=== PATIENT | male | born 1945 | race Caucasian/White ===

== ENCOUNTER 2018-02-12 21:07 | Emergency (ER) | payer MEDICARE, OTHER ==
[~2018-02-12] VITALS: Ht 182.9 cm; Wt 72.7 kg
[2018-02-12 23:52] VITALS: BP 170/91
== END 2018-02-12 23:53 | disposition home or self-care (01) ==
LOC: ER 21:07
DX: R19.7 Diarrhea, unspecified (principal); E78.00 Pure hypercholesterolemia, unspecified; I10 Essential (primary) hypertension; K21.9 Gastro-esophageal reflux disease without esophagitis; Z98.890 Other specified postprocedural states
CPT/HCPCS: 99284

== ENCOUNTER 2018-06-06 19:13 | Inpatient (IN) | payer MEDICARE, OTHER ==
[~2018-06-06] VITALS: Ht 190.5 cm; Wt 75.0 kg
[2018-06-06] MEDS ORDERED: ceFAZolin 1GM/D5W- ADD-VANTAGE 50 ML IV ONE (21:20)
[2018-06-06] MEDS ORDERED: morphine 4 MG/ML inj SYRINge IV ONE (21:20)
[2018-06-06] MEDS ORDERED: ondansetron/PF 4mg/2ml inj IV ONE (21:20)
[2018-06-06] MEDS ORDERED: UNABLE TO OBTAIN (22:08)
[2018-06-06 22:26] LABS: BASOPHILS % (AUTO) 0.1 % (0-1); EOSINOPHILS % (AUTO) 0.4 % (0-6); HEMATOCRIT 41.8 % (42.0-52.0); HEMOGLOBIN 13.8 g/dl (14.0-17.9); LYMPHOCYTES # (AUTO) 0.9 X10'3 (1.1-4.8); LYMPHOCYTES % (AUTO) 7.6 % (21-51); MEAN CORPUSCULAR VOLUME 85.1 FL (78-98); MEAN PLATELET VOLUME 7.6 FL (7.4-10.4); MONOCYTES # (AUTO) 0.3 X10'3 (0-0.9); MONOCYTES % (AUTO) 2.3 % (2-12); NEUTROPHILS # (AUTO) 11.1 X10'3 (1.8-7.7); NEUTROPHILS % (AUTO) 89.6 % (42-75); PLATELET COUNT 289 X10'3 (140-440); RED BLOOD COUNT 4.91 X10'6 (4.70-6.10); RED CELL DISTRIBUTION WIDTH 14.1 % (11.5-14.5); WHITE BLOOD COUNT 12.4 X10'3 (4.5-11.0)
[2018-06-06 22:41] LABS: PARTIAL THROMBOPLASTIN TIME 27 SECONDS (22-32); PROTHROMBIN TIME 10.1 SECONDS (9.0-12.0)
[2018-06-06 22:45] LABS: ANION GAP 5 (8-16); BLOOD UREA NITROGEN 15 MG/DL (7-18); BUN/CREATININE RATIO 12.3 (5.4-32.0); CHLORIDE 104 MMOL/L (99-107); CREATININE 1.22 MG/DL (0.60-1.10); GLUCOSE 116 MG/DL (70-104); POTASSIUM 4.9 MMOL/L (3.5-5.1); SODIUM 140 MMOL/L (135-145); TOTAL CARBON DIOXIDE 31.2 MMOL/L (24-32)
[2018-06-06 22:46] LABS: ALANINE AMINOTRANSFERASE 20 U/L (12-78); ALBUMIN 3.7 G/DL (3.4-5.0); ALKALINE PHOSPHATASE 92 IU/L (46-116); ASPARTATE AMINO TRANSFERASE 15 U/L (10-37); BILIRUBIN,TOTAL 0.3 MG/DL (0.1-1.0); CALCIUM 8.9 MG/DL (8.5-10.1); TOTAL PROTEIN 7.3 G/DL (6.4-8.2); eGFR 58 ML/MIN
[2018-06-06 22:49] LABS: LIPASE 128 U/L (73-393); TROPONIN I < 0.04 NG/ML (0.0-0.05)
[2018-06-06 23:49] LABS: PLATELET ESTIMATE NORMAL; TOTAL CELLS COUNTED 100
[2018-06-07] VITALS (20 sets, daily range): BP systolic 124–163; BP diastolic 62–89
[2018-06-07] MEDS ORDERED: morphine 2 MG/ML inj. syringe IV PRN ×2 (00:10→04:10)
[2018-06-07] MEDS ORDERED: ondansetron/PF 4mg/2ml inj IV PRN ×2 (00:10→14:25)
[2018-06-07] MEDS: normal saline 1000ml 1,000 ML IV SCH ×3 (01:04→15:51)
[2018-06-07] MEDS: morphine 2 MG/ML inj. syringe IV PRN ×2 (01:04→08:34)
[2018-06-07 02:13] LABS: CLARITY,URINE CLEAR (Clear); COLOR,URINE YELLOW (Yellow); GLUCOSE, URINE NEGATIVE (Neg); KETONES,URINE TRACE mg/dl (Neg); LEUKOCYTE ESTERASE ,URINE NEGATIVE (Neg); NITRITES, URINE NEGATIVE (Neg); OCCULT BLOOD,URINE NEGATIVE (Neg); PH,URINE 6.5 (4.8-8.0); PROTEIN,URINE NEGATIVE (Neg)
[2018-06-07 02:16] LABS: UA COLLECTION TYPE CLN CATCH MIDSTREAM
[2018-06-07] MEDS ORDERED: nicotine 21mg patch - 24 hr TD SCH (08:00)
[2018-06-07] MEDS: ceFAZolin 1GM/D5W- ADD-VANTAGE 50 ML IV SCH ×2 (08:23→15:52)
[2018-06-07] MEDS ORDERED: sevoflurane 250ml liquid IH ONE (12:08)
[2018-06-07] MEDS ORDERED: BUSP10TA11 PO (12:11)
[2018-06-07] MEDS ORDERED: ALBU8HFA PO (12:11)
[2018-06-07] MEDS ORDERED: CITA-278 PO (12:12)
[2018-06-07] MEDS ORDERED: CYA500T PO (12:14)
[2018-06-07] MEDS ORDERED: CHOL400T32 PO (12:14)
[2018-06-07] MEDS ORDERED: PANT40TA4 PO (12:18)
[2018-06-07] MEDS ORDERED: QUET100T33 PO (12:22)
[2018-06-07] MEDS ORDERED: ipratropium/albuterol 3ml nebule NEB PRN (12:35)
[2018-06-07] MEDS ORDERED: ceFAZolin 1000mg inj ONE ×2 (12:45→13:16)
[2018-06-07] MEDS ORDERED: BUPIVAcaine/PF 2.5mg/ml (0.25%) 10ml vial ONE (12:45)
[2018-06-07] MEDS ORDERED: fentaNYL /PF 50mcg/ml 5ml ampule ONE (12:57)
[2018-06-07] MEDS ORDERED: propofol inj 20 ML IV ONE (12:58)
[2018-06-07] MEDS ORDERED: rocuronium 10mg/ml inj IV ONE (12:58)
[2018-06-07] MEDS ORDERED: LIDOcaine 2% (20mg/ml) 5ml vial ONE (12:58)
[2018-06-07] MEDS ORDERED: dexamethasone sod phosphate 4mg/ml inj. ONE (13:16)
[2018-06-07] MEDS ORDERED: glycopyrrolate 0.2mg/ml inj ONE (13:51)
[2018-06-07] MEDS ORDERED: neostigmine methylsulfate 1 MG/ML 10ml vial ONE (13:51)
[2018-06-07] MEDS ORDERED: ondansetron/PF 4mg/2ml inj ONE (13:51)
[2018-06-07] MEDS ORDERED: ringers solution, lacted 1,000 ML IV SCH (14:21)
[2018-06-07] MEDS ORDERED: morphine 4 MG/ML inj SYRINge IV PRN (14:25)
[2018-06-07] MEDS ORDERED: HYDROmorphone 1 mg/ml syringe IV PRN (14:25)
[2018-06-07] MEDS ORDERED: albuterol 2.5 MG/3 ML nebule NEB PRN (16:15)
[2018-06-07] MEDS: ipratropium/albuterol 3ml nebule NEB PRN (16:24)
[2018-06-07] MEDS: nicotine 14mg patch - 24hr TD SCH (20:17)
[2018-06-07] MEDS: quetiapine 100mg tablet PO SCH (20:26)
[2018-06-07] MEDS: lactobacillus rhamnosus 10,000 MMU CELLS/CAPSULE PO SCH (20:26)
[2018-06-07] MEDS: busPIRone 5mg tablet PO SCH (20:26)
[2018-06-08] MEDS: ceFAZolin 1GM/D5W- ADD-VANTAGE 50 ML IV SCH ×3 (01:38→16:01)
[2018-06-08 02:00] VITALS: BP 149/66
[2018-06-08] MEDS: normal saline 1000ml 1,000 ML IV SCH ×3 (03:32→23:48)
[2018-06-08] MEDS: acetaminophen 325mg tablet PO PRN ×3 (05:38→19:33)
[2018-06-08 06:00] VITALS: BP 155/85
[2018-06-08 06:12] LABS: BASOPHILS % (AUTO) 0.3 % (0-1); EOSINOPHILS # (AUTO) 0.1 X10'3 (0-0.9); HEMOGLOBIN 11.7 g/dl (14.0-17.9); LYMPHOCYTES # (AUTO) 1.4 X10'3 (1.1-4.8); LYMPHOCYTES % (AUTO) 14.3 % (21-51); MEAN CORPUSCULAR HEMOGLOBIN 27.9 PG (27.0-31.0); MEAN CORPUSCULAR HGB CONC 32.6 % (33.0-36.5); MEAN CORPUSCULAR VOLUME 85.7 FL (78-98); MEAN PLATELET VOLUME 7.9 FL (7.4-10.4); MONOCYTES # (AUTO) 0.7 X10'3 (0-0.9); MONOCYTES % (AUTO) 7.3 % (2-12); NEUTROPHILS # (AUTO) 7.5 X10'3 (1.8-7.7); NEUTROPHILS % (AUTO) 77.1 % (42-75); PLATELET COUNT 255 X10'3 (140-440); RED CELL DISTRIBUTION WIDTH 13.8 % (11.5-14.5); WHITE BLOOD COUNT 9.7 X10'3 (4.5-11.0)
[2018-06-08 06:29] LABS: ALANINE AMINOTRANSFERASE 13 U/L (12-78); ALBUMIN 2.8 G/DL (3.4-5.0); ALBUMIN/GLOBULIN RATIO 0.9 (1.1-1.5); ALKALINE PHOSPHATASE 79 IU/L (46-116); ANION GAP 6 (8-16); ASPARTATE AMINO TRANSFERASE 18 U/L (10-37); BILIRUBIN,TOTAL 0.4 MG/DL (0.1-1.0); BLOOD UREA NITROGEN 14 MG/DL (7-18); BUN/CREATININE RATIO 18.9 (5.4-32.0); CHLORIDE 106 MMOL/L (99-107); CREATININE 0.74 MG/DL (0.60-1.10); GLUCOSE 98 MG/DL (70-104); POTASSIUM 4.2 MMOL/L (3.5-5.1); SODIUM 138 MMOL/L (135-145); eGFR > 90 ML/MIN
[2018-06-08] MEDS: citalopram 20mg tablet PO SCH (08:12)
[2018-06-08] MEDS: lactobacillus rhamnosus 10,000 MMU CELLS/CAPSULE PO SCH ×2 (08:12→20:46)
[2018-06-08] MEDS: busPIRone 5mg tablet PO SCH ×2 (08:13→20:46)
[2018-06-08] MEDS: pantoprazole 40mg Tablet.DR PO SCH (08:13)
[2018-06-08] MEDS: cholecalciferol (vitamin D) 400 unit tablet PO SCH (08:13)
[2018-06-08] MEDS: cyanocobalamin 500mcg tablet PO SCH (08:13)
[2018-06-08] MEDS: morphine 2 MG/ML inj. syringe IV PRN (12:24)
[2018-06-08] MEDS: nicotine 14mg patch - 24hr TD SCH (14:13)
[2018-06-08 18:00] VITALS: BP 145/72
[2018-06-08] MEDS: ipratropium/albuterol 3ml nebule NEB PRN (20:14)
[2018-06-08] MEDS: quetiapine 100mg tablet PO SCH (20:46)
[2018-06-08 22:00] VITALS: BP 124/55
[2018-06-09] MEDS: ceFAZolin 1GM/D5W- ADD-VANTAGE 50 ML IV SCH ×4 (00:56→16:00)
[2018-06-09] MEDS: acetaminophen 325mg tablet PO PRN ×2 (03:56→20:15)
[2018-06-09 06:14] LABS: BASOPHILS % (AUTO) 0.4 % (0-1); EOSINOPHILS # (AUTO) 0.1 X10'3 (0-0.9); EOSINOPHILS % (AUTO) 1.4 % (0-6); HEMATOCRIT 32.2 % (42.0-52.0); HEMOGLOBIN 10.5 g/dl (14.0-17.9); LYMPHOCYTES # (AUTO) 1.5 X10'3 (1.1-4.8); LYMPHOCYTES % (AUTO) 21.1 % (21-51); MEAN CORPUSCULAR HEMOGLOBIN 27.6 PG (27.0-31.0); MEAN CORPUSCULAR HGB CONC 32.6 % (33.0-36.5); MEAN CORPUSCULAR VOLUME 84.7 FL (78-98); MEAN PLATELET VOLUME 7.6 FL (7.4-10.4); MONOCYTES # (AUTO) 0.6 X10'3 (0-0.9); MONOCYTES % (AUTO) 8.3 % (2-12); NEUTROPHILS # (AUTO) 4.8 X10'3 (1.8-7.7); NEUTROPHILS % (AUTO) 68.8 % (42-75); PLATELET COUNT 234 X10'3 (140-440); RED CELL DISTRIBUTION WIDTH 14.3 % (11.5-14.5)
[2018-06-09 06:52] VITALS: BP 145/76
[2018-06-09 07:17] LABS: ALANINE AMINOTRANSFERASE 14 U/L (12-78); ALBUMIN 2.6 G/DL (3.4-5.0); ALBUMIN/GLOBULIN RATIO 0.9 (1.1-1.5); ALKALINE PHOSPHATASE 63 IU/L (46-116); ANION GAP 7 (8-16); ASPARTATE AMINO TRANSFERASE 15 U/L (10-37); BILIRUBIN,TOTAL 0.3 MG/DL (0.1-1.0); BLOOD UREA NITROGEN 10 MG/DL (7-18); BUN/CREATININE RATIO 12.7 (5.4-32.0); CALCIUM 8.1 MG/DL (8.5-10.1); CHLORIDE 106 MMOL/L (99-107); CREATININE 0.79 MG/DL (0.60-1.10); GLUCOSE 88 MG/DL (70-104); POTASSIUM 3.7 MMOL/L (3.5-5.1); SODIUM 139 MMOL/L (135-145); TOTAL PROTEIN 5.6 G/DL (6.4-8.2); eGFR > 90 ML/MIN
[2018-06-09] MEDS: cyanocobalamin 500mcg tablet PO SCH (07:20)
[2018-06-09] MEDS: cholecalciferol (vitamin D) 400 unit tablet PO SCH (07:20)
[2018-06-09] MEDS: lactobacillus rhamnosus 10,000 MMU CELLS/CAPSULE PO SCH ×2 (07:21→20:10)
[2018-06-09] MEDS: pantoprazole 40mg Tablet.DR PO SCH (07:21)
[2018-06-09] MEDS: busPIRone 5mg tablet PO SCH ×2 (07:21→20:10)
[2018-06-09] MEDS: citalopram 20mg tablet PO SCH (07:22)
[2018-06-09] MEDS: nicotine 14mg patch - 24hr TD SCH (07:24)
[2018-06-09 10:00] VITALS: BP 134/74
[2018-06-09] MEDS: normal saline 1000ml 1,000 ML IV SCH ×2 (12:10→20:11)
[2018-06-09 18:00] VITALS: BP 152/80
[2018-06-09] MEDS: quetiapine 100mg tablet PO SCH (20:10)
[2018-06-09 21:39] VITALS: BP 129/72
[2018-06-10 05:00] VITALS: BP 139/75
[2018-06-10 06:42] LABS: BASOPHILS % (AUTO) 0.5 % (0-1); EOSINOPHILS # (AUTO) 0.1 X10'3 (0-0.9); EOSINOPHILS % (AUTO) 2.3 % (0-6); HEMATOCRIT 34.8 % (42.0-52.0); HEMOGLOBIN 11.4 g/dl (14.0-17.9); LYMPHOCYTES # (AUTO) 1.2 X10'3 (1.1-4.8); LYMPHOCYTES % (AUTO) 23.9 % (21-51); MEAN CORPUSCULAR HEMOGLOBIN 27.9 PG (27.0-31.0); MEAN CORPUSCULAR HGB CONC 32.6 % (33.0-36.5); MEAN CORPUSCULAR VOLUME 85.4 FL (78-98); MEAN PLATELET VOLUME 7.8 FL (7.4-10.4); MONOCYTES # (AUTO) 0.4 X10'3 (0-0.9); MONOCYTES % (AUTO) 8.2 % (2-12); NEUTROPHILS # (AUTO) 3.4 X10'3 (1.8-7.7); NEUTROPHILS % (AUTO) 65.1 % (42-75); PLATELET COUNT 246 X10'3 (140-440); RED BLOOD COUNT 4.08 X10'6 (4.70-6.10); WHITE BLOOD COUNT 5.2 X10'3 (4.5-11.0)
[2018-06-10 06:51] LABS: ALANINE AMINOTRANSFERASE 13 U/L (12-78); ALBUMIN 2.7 G/DL (3.4-5.0); ALBUMIN/GLOBULIN RATIO 0.8 (1.1-1.5); ALKALINE PHOSPHATASE 67 IU/L (46-116); ANION GAP 6 (8-16); ASPARTATE AMINO TRANSFERASE 16 U/L (10-37); BILIRUBIN,TOTAL 0.4 MG/DL (0.1-1.0); BLOOD UREA NITROGEN 10 MG/DL (7-18); BUN/CREATININE RATIO 14.3 (5.4-32.0); CALCIUM 8.1 MG/DL (8.5-10.1); CHLORIDE 107 MMOL/L (99-107); GLUCOSE 83 MG/DL (70-104); POTASSIUM 3.8 MMOL/L (3.5-5.1); SODIUM 141 MMOL/L (135-145); TOTAL PROTEIN 5.9 G/DL (6.4-8.2); eGFR > 90 ML/MIN
[2018-06-10 07:07] LABS: % IRON SATURATION 12 % (11-46); IRON 29 UG/DL (53-167); TOTAL IRON BINDING CAPACITY 237 UG/DL (259-388)
[2018-06-10] MEDS: citalopram 20mg tablet PO SCH (08:15)
[2018-06-10] MEDS: cyanocobalamin 500mcg tablet PO SCH (08:15)
[2018-06-10] MEDS: lactobacillus rhamnosus 10,000 MMU CELLS/CAPSULE PO SCH (08:15)
[2018-06-10] MEDS: pantoprazole 40mg Tablet.DR PO SCH (08:16)
[2018-06-10] MEDS: busPIRone 5mg tablet PO SCH (08:16)
[2018-06-10] MEDS: cholecalciferol (vitamin D) 400 unit tablet PO SCH (08:16)
[2018-06-10] MEDS: nicotine 14mg patch - 24hr TD SCH (08:18)
[2018-06-10 10:00] VITALS: BP 114/66
== END 2018-06-10 14:45 | DRG 511 ==
LOC: ER 19:14 → ED HOLD 06-07 00:10 → EDBEDREQ 06-07 00:56 → ORTHO 4S 06-07 01:29
PROVIDERS: ADMIT Internal Medicine; ATTEND Internal Medicine
PROC: 2W39X1Z Immobilization of Left Upper Extremity using Splint (ICD-10-PCS; 2018-06-07)
PROC: 0PSL04Z Reposition Left Ulna with Internal Fixation Device, Open Approach (ICD-10-PCS; principal; 2018-06-07 12:08)
DX: S52.022B Displaced fracture of olecranon process without intraarticular extension of left ulna, initial encounter for open fracture type I or II (principal); N17.9 Acute kidney failure, unspecified; W01.0XXA Fall on same level from slipping, tripping and stumbling without subsequent striking against object, initial encounter; S52.122B Displaced fracture of head of left radius, initial encounter for open fracture type I or II; E78.00 Pure hypercholesterolemia, unspecified; F17.210 Nicotine dependence, cigarettes, uncomplicated; F31.9 Bipolar disorder, unspecified; I10 Essential (primary) hypertension; J44.9 Chronic obstructive pulmonary disease, unspecified; K21.9 Gastro-esophageal reflux disease without esophagitis; D72.829 Elevated white blood cell count, unspecified; F41.9 Anxiety disorder, unspecified; R91.1 Solitary pulmonary nodule; Z79.899 Other long term (current) drug therapy; Y93.89 Activity, other specified; Y92.89 Other specified places as the place of occurrence of the external cause; Y99.8 Other external cause status; Z71.6 Tobacco abuse counseling
CPT/HCPCS: 36415; 71045; 73080; 73564; 80053; 81003; 83540; 83550; 83690; 84484; 85025; 85610; 85730; 86885; 86900; 86901; 87070; 93005; 94640; 94667; 94668; 94760; 97110; 97116; 97161; A4565; A6222; A6449; A7000; C1713; G0378; J0690; J1100; J2001; J2270; J2405; J2704; J2710; J3010; J3490; J7030; J7120

== ENCOUNTER 2019-01-10 09:19 | Emergency (ER) | payer MEDICARE, OTHER ==
[~2019-01-10] VITALS: Ht 180.3 cm; Wt 87.2 kg
[~2019-01-10 09:19] MED LIST: ALBU8HFA PO; BUSP10TA11 PO; CHOL400T32 PO; CITA20TA28 PO; CYAN500T63 PO; PANT40TA4 PO; QUET100T33 PO; UNABLE TO OBTAIN
--- NOTE | 2019-01-10 09:30 | NUR ---
Note hubertradha in EDM - 01/10/19 at 1048 by JANEY I WALKED INTO [facility] WITH DAVID HOOVER AT BEDSIDE: PATIENT GRABBING HANDS ON BED AND THRASHING SIDE TO SIDE, PER VERBAL ORDER FROM DR STOREY: VERSED GTT INCRESED TO 5 MG/HR AND FENTANYL IVP TO BE GIVEN GTT UNAVAILABLE AT THIS TIME PATIENT ON VENT: 8 OETT 25 CM AT LIP ON 40%, PEEP 5 AC/VC VISUALIZED TV 409 SET TV 400ML. ORAL SUCTION: FROTHY CLEAR OG RESECURED TO OETT: TO LIS LIGHT GREEN FLUID FC TO GRAVIT: PEYTON BLOOD
[2019-01-10] MEDS ORDERED: LIDOcaine 1% 30ml preserv. free vial IJ ONE (10:05)
--- NOTE | 2019-01-10 10:20 | NUR ---
Agustin alin in EDM - 01/10/19 at 1100 by JANEY PAT VERY COMBATIVE AFTER OEET SXN: THRASHING SIDE TO SIDE GRABBING BED WITH HANDS, LIFTING HEAD OF BED, DR ROMO IN ROOM, 1 RN AND 1 TECH TO KEEP PATIENT FROM HURTING HIMSELF, OVERBREATHING VENTILATOR: RR 30, HR UP TO 136, ST, BP 159/98
--- NOTE | 2019-01-10 11:00 | NUR ---
previous notes undone, wrong patient
--- NOTE | 2019-01-10 11:30 | NUR ---
PAM MIDDLE FINGER RESET BY DR STOREY, XRAY IN ROOM
[2019-01-10 12:00] VITALS: BP 153/95
== END 2019-01-10 12:01 | disposition home or self-care (01) ==
LOC: ER 09:19
DX: S63.263A Dislocation of metacarpophalangeal joint of left middle finger, initial encounter (principal); E78.00 Pure hypercholesterolemia, unspecified; I10 Essential (primary) hypertension; K21.9 Gastro-esophageal reflux disease without esophagitis; Z98.890 Other specified postprocedural states; Z79.899 Other long term (current) drug therapy; W18.49XA Other slipping, tripping and stumbling without falling, initial encounter; Y93.89 Activity, other specified; Y92.89 Other specified places as the place of occurrence of the external cause; Y99.9 Unspecified external cause status
CPT/HCPCS: 26700; 73130; 73140; 99284; J3490

== ENCOUNTER 2019-12-28 18:44 | Inpatient (IN) | payer OTHER, MEDICARE ==
[~2019-12-28] VITALS: Ht 180.3 cm; Wt 81.8 kg
--- NOTE | 2019-12-28 19:09 | NUR ---
called brady anderson. she is driving to her office to acquire patient's medication list. ETA 30 min
[2019-12-28 19:11] LABS: BASOPHILS % (AUTO) 0.8 % (0-1); EOSINOPHILS # (AUTO) 0.1 X10'3 (0-0.9); EOSINOPHILS % (AUTO) 2.2 % (0-6); HEMOGLOBIN 12.2 g/dl (14.0-17.9); LYMPHOCYTES # (AUTO) 1.5 X10'3 (1.1-4.8); LYMPHOCYTES % (AUTO) 23.8 % (21-51); MEAN CORPUSCULAR HEMOGLOBIN 25.7 PG (27.0-31.0); MEAN CORPUSCULAR VOLUME 80.2 FL (78-98); MEAN PLATELET VOLUME 7.8 FL (7.4-10.4); MONOCYTES # (AUTO) 0.5 X10'3 (0-0.9); NEUTROPHILS % (AUTO) 65.2 % (42-75); PLATELET COUNT 261 X10'3 (140-440); RED BLOOD COUNT 4.73 X10'6 (4.70-6.10); RED CELL DISTRIBUTION WIDTH 15.8 % (11.5-14.5); WHITE BLOOD COUNT 6.1 X10'3 (4.5-11.0)
[2019-12-28 19:21] LABS: PARTIAL THROMBOPLASTIN TIME 28 SECONDS (22-32)
[2019-12-28 19:24] LABS: ALANINE AMINOTRANSFERASE 16 U/L (12-78); ALBUMIN 3.5 G/DL (3.4-5.0); ALBUMIN/GLOBULIN RATIO 1.1 (1.1-1.5); ALKALINE PHOSPHATASE 95 IU/L (46-116); ANION GAP 6 (8-16); ASPARTATE AMINO TRANSFERASE 11 U/L (10-37); BILIRUBIN,TOTAL 0.2 MG/DL (0.1-1.0); BLOOD UREA NITROGEN 17 MG/DL (7-18); BUN/CREATININE RATIO 15.9 (5.4-32.0); CALCIUM 8.7 MG/DL (8.5-10.1); CHLORIDE 104 MMOL/L (99-107); CREATININE 1.07 MG/DL (0.60-1.10); GLUCOSE 100 MG/DL (70-104); SODIUM 139 MMOL/L (135-145); TOTAL PROTEIN 6.7 G/DL (6.4-8.2); eGFR 67 ML/MIN
[2019-12-28] MEDS ORDERED: aspirin 325mg tablet PO ONE (19:25)
[2019-12-28 19:26] LABS: TROPONIN I < 0.04 NG/ML (0.0-0.05)
[2019-12-28] MEDS ORDERED: magnesium hydroxide 30ml (MOM) UD suspension PO PRN (21:55)
[2019-12-28] MEDS ORDERED: acetaminophen 325mg tablet PO PRN (21:55)
[2019-12-28] MEDS ORDERED: mag hydrox/Alum hydrox/simeth 30ml oral suspension PO PRN (21:55)
[2019-12-28] MEDS ORDERED: ondansetron/PF 4mg/2ml inj IV PRN (21:55)
[2019-12-28] MEDS ORDERED: albuterol 2.5 MG/3 ML nebule NEB PRN (22:05)
[2019-12-28 22:30] VITALS: BP 178/77
--- NOTE | 2019-12-28 22:54 | NUR ---
ASSUMED CARE OF PATIENT WITH REPORT FROM MUSEUM SECURITY CHIEF, PATIENT ARRIVED VIA GURNEY AND TRANSFERED TO BED. 2 RN SKIN CHECK DONE, NO SKIN ISSUES NOTED. MRSA SWAB OBTAINED AND SENT TO LAB. PATIENT A&O X4, BUT IS HARD OF HEARING WHICH MAKES FOR SOME MISUNDERSTANDING OF QUESTIONS ASKED. VITAL SIGNS TAKEN AND RECORDED. URINAL AND CALL LIGHT IN REACH
[2019-12-28] MEDS ORDERED: quetiapine 100mg tablet PO ONE (23:05)
[2019-12-28 23:49] LABS: CLARITY,URINE CLEAR (Clear); COLOR,URINE YELLOW (Yellow); GLUCOSE, URINE NEGATIVE (Neg); KETONES,URINE NEGATIVE (Neg); LEUKOCYTE ESTERASE ,URINE NEGATIVE (Neg); NITRITES, URINE NEGATIVE (Neg); OCCULT BLOOD,URINE NEGATIVE (Neg); PROTEIN,URINE NEGATIVE (Neg)
[2019-12-28 23:50] LABS: UA COLLECTION TYPE VOIDED
[2019-12-29] VITALS: BP 175/75
[2019-12-29 04:00] VITALS: BP 168/71
[2019-12-29 05:04] LABS: ALANINE AMINOTRANSFERASE 11 U/L (12-78); ALBUMIN 3.1 G/DL (3.4-5.0); ALKALINE PHOSPHATASE 89 IU/L (46-116); ANION GAP 10 (8-16); ASPARTATE AMINO TRANSFERASE 19 U/L (10-37); BILIRUBIN,TOTAL 0.4 MG/DL (0.1-1.0); CALCIUM 8.5 MG/DL (8.5-10.1); CHLORIDE 106 MMOL/L (99-107); CHOL/HDL RATIO 3.7 (0.00-4.99); CHOLESTEROL 187 MG/DL (0-200); CREATININE 0.79 MG/DL (0.60-1.10); GLUCOSE 88 MG/DL (70-104); HDL CHOLESTEROL 50 MG/DL (35-60); LDL CHOLESTEROL 131 MG/DL (50-100); SODIUM 140 MMOL/L (135-145); TOTAL CARBON DIOXIDE 24.2 MMOL/L (24-32); TOTAL PROTEIN 6.2 G/DL (6.4-8.2); TRIGLYCERIDES 50 MG/DL (20-135); eGFR > 90 ML/MIN
[2019-12-29 05:10] LABS: BLOOD UREA NITROGEN 13 MG/DL (7-18); BUN/CREATININE RATIO 16.5 (5.4-32.0); POTASSIUM 4.3 MMOL/L (3.5-5.1)
--- NOTE | 2019-12-29 06:00 | NUR ---
Patient in room ADELA[facility] 344. I have received report from Tony HERNANDEZ and had the opportunity to ask questions and assume patient care.
--- NOTE | 2019-12-29 06:32 | NUR ---
Patient in room ADELAIDA 344. I have received report from Sherri HERNANDEZ and had the opportunity to ask questions and assume patient care.
--- NOTE | 2019-12-29 06:33 | NUR ---
Problems reprioritized. Patient report given, questions answered & plan of care reviewed with DANIEL HERNANDEZ.
[2019-12-29 07:31] LABS: BASOPHILS % (AUTO) 0.5 % (0-1); EOSINOPHILS # (AUTO) 0.1 X10'3 (0-0.9); EOSINOPHILS % (AUTO) 1.8 % (0-6); HEMATOCRIT 38.6 % (42.0-52.0); HEMOGLOBIN 12.4 g/dl (14.0-17.9); LYMPHOCYTES # (AUTO) 1.6 X10'3 (1.1-4.8); LYMPHOCYTES % (AUTO) 25.9 % (21-51); MEAN CORPUSCULAR HEMOGLOBIN 26.3 PG (27.0-31.0); MEAN CORPUSCULAR HGB CONC 32.1 g/dL (33.0-36.5); MEAN CORPUSCULAR VOLUME 81.8 FL (78-98); MEAN PLATELET VOLUME 7.7 FL (7.4-10.4); MONOCYTES # (AUTO) 0.4 X10'3 (0-0.9); NEUTROPHILS # (AUTO) 4.1 X10'3 (1.8-7.7); NEUTROPHILS % (AUTO) 64.8 % (42-75); PLATELET COUNT 231 X10'3 (140-440); RED BLOOD COUNT 4.71 X10'6 (4.70-6.10); RED CELL DISTRIBUTION WIDTH 15.9 % (11.5-14.5); WHITE BLOOD COUNT 6.4 X10'3 (4.5-11.0)
[2019-12-29 08:00] VITALS: BP 152/73
[2019-12-29] MEDS ORDERED: cyanocobalamin 500mcg tablet PO SCH (08:00)
[2019-12-29] MEDS ORDERED: pantoprazole 40mg Tablet.DR PO SCH (08:00)
[2019-12-29] MEDS ORDERED: citalopram 20mg tablet PO SCH (08:00)
[2019-12-29] MEDS ORDERED: busPIRone 5mg tablet PO SCH (08:00)
[2019-12-29] MEDS ORDERED: cholecalciferol (vitamin D) 400 unit tablet PO SCH (08:00)
[2019-12-29] MEDS ORDERED: heparin, porcine 5000 units/ml vial SQ SCH (08:00)
[2019-12-29 11:00] VITALS: BP 136/82
[2019-12-29] MEDS ORDERED: atorvastatin 20mg tablet PO SCH (11:55)
[2019-12-29 12:00] VITALS: BP 136/82
[2019-12-29] MEDS ORDERED: ASPI-1071 PO (13:43)
[2019-12-29] MEDS ORDERED: ATOR20TA66 PO (13:43)
--- NOTE | 2019-12-29 16:37 | NUR ---
patient appears stable Neuro checks normal. patient alert and orientated. All cares given. seen by Dr Hinojosa. Is for DC. All DC instructions given to patient. Conservator Mago called to report care given and DC home. patient DC via [facility] with Ambulance personel to [facility]. [facility] patient stated he understood this. Dc 1600hrs in stable condition.
[2019-12-29] MEDS ORDERED: quetiapine 100mg tablet PO SCH (21:00)
[2019-12-30] MEDS ORDERED: aspirin 81mg tablet.DR PO SCH (08:00)
== END 2019-12-29 16:16 | disposition home or self-care (01) | DRG 69 ==
LOC: ER 18:44 → ED HOLD 21:53 → EDBEDREQ 22:06 → SUR 3N 22:39
PROVIDERS: ADMIT Internal Medicine; ATTEND Family Medicine
DX: G45.9 Transient cerebral ischemic attack, unspecified (principal); E78.00 Pure hypercholesterolemia, unspecified; F17.210 Nicotine dependence, cigarettes, uncomplicated; F32.9 Major depressive disorder, single episode, unspecified; K21.9 Gastro-esophageal reflux disease without esophagitis; I10 Essential (primary) hypertension; Z87.820 Personal history of traumatic brain injury; Z79.899 Other long term (current) drug therapy
CPT/HCPCS: 36415; 70450; 70544; 70551; 71045; 80053; 80061; 81003; 82948; 83036; 83605; 84145; 84439; 84443; 84484; 85025; 85610; 85730; 87040; 87081; 93005; 93880; 99285; G0378; J1644

== ENCOUNTER 2020-09-10 11:21 | Emergency (ER) | payer OTHER, MEDICARE ==
[~2020-09-10] VITALS: Ht 182.9 cm; Wt 86.4 kg
[~2020-09-10 11:21] MED LIST changes: -ALBU8HFA PO; +ASPI-1071 PO; +ATOR20TA66 PO; +CHOL20004 PO; -CHOL400T32 PO; +CLOP75TA15 PO; -CYAN500T63 PO; +CYAN500T71 PO; +METO25TA6 PO; -PANT40TA4 PO; +PANT40TA54 PO; +TRAZ-251 PO; -UNABLE TO OBTAIN
[2020-09-10 11:24] VITALS: BP 113/47
--- NOTE | 2020-09-10 11:24 | NUR ---
JETT SY [phone] CONSERVATOR
[2020-09-10] MEDS ORDERED: normal saline 1000ml 1,000 ML IV ONE (11:45)
[2020-09-10 12:03] LABS: BASOPHILS % (AUTO) 0.8 % (0-1); EOSINOPHILS # (AUTO) 0.1 X10'3 (0-0.9); EOSINOPHILS % (AUTO) 2.3 % (0-6); HEMATOCRIT 29.9 % (42.0-52.0); HEMOGLOBIN 9.4 g/dl (14.0-17.9); LYMPHOCYTES # (AUTO) 1.1 X10'3 (1.1-4.8); LYMPHOCYTES % (AUTO) 18.4 % (21-51); MEAN CORPUSCULAR HEMOGLOBIN 24.4 PG (27.0-31.0); MEAN CORPUSCULAR HGB CONC 31.5 g/dL (33.0-36.5); MEAN CORPUSCULAR VOLUME 77.4 FL (78-98); MEAN PLATELET VOLUME 7.6 FL (7.4-10.4); MONOCYTES # (AUTO) 0.5 X10'3 (0-0.9); MONOCYTES % (AUTO) 7.6 % (2-12); NEUTROPHILS # (AUTO) 4.3 X10'3 (1.8-7.7); NEUTROPHILS % (AUTO) 70.9 % (42-75); PLATELET COUNT 323 X10'3 (140-440); RED BLOOD COUNT 3.86 X10'6 (4.70-6.10); RED CELL DISTRIBUTION WIDTH 16.2 % (11.5-14.5); WHITE BLOOD COUNT 6.1 X10'3 (4.5-11.0)
[2020-09-10 12:15] LABS: ALANINE AMINOTRANSFERASE 28 U/L (12-78); ALBUMIN 3.3 G/DL (3.4-5.0); ALBUMIN/GLOBULIN RATIO 1.1 (1.1-1.5); ALKALINE PHOSPHATASE 73 IU/L (46-116); ANION GAP 10 (8-16); ASPARTATE AMINO TRANSFERASE 28 U/L (10-37); BILIRUBIN,TOTAL 0.3 MG/DL (0.1-1.0); BLOOD UREA NITROGEN 18 MG/DL (7-18); BUN/CREATININE RATIO 22.8 (5.4-32.0); CALCIUM 8.4 MG/DL (8.5-10.1); CHLORIDE 104 MMOL/L (99-107); CREATININE 0.79 MG/DL (0.60-1.10); GLUCOSE 92 MG/DL (70-104); POTASSIUM 4.8 MMOL/L (3.5-5.1); SODIUM 142 MMOL/L (135-145); TOTAL CARBON DIOXIDE 28.4 MMOL/L (24-32); TOTAL PROTEIN 6.3 G/DL (6.4-8.2); eGFR > 90 ML/MIN
[2020-09-10 12:22] LABS: TROPONIN I < 0.04 NG/ML (0.0-0.05)
[2020-09-15 16:10] LABS: OCCULT BLOOD STOOL NEGATIVE (Neg)
== END 2020-09-10 12:55 | disposition home or self-care (01) ==
LOC: ER 11:22
DX: R42 Dizziness and giddiness (principal); D64.9 Anemia, unspecified; R53.1 Weakness; R06.02 Shortness of breath; E78.00 Pure hypercholesterolemia, unspecified; I10 Essential (primary) hypertension; K21.9 Gastro-esophageal reflux disease without esophagitis; F32.9 Major depressive disorder, single episode, unspecified; Z98.890 Other specified postprocedural states; Z79.82 Long term (current) use of aspirin; Z79.899 Other long term (current) drug therapy
CPT/HCPCS: 36415; 71045; 80053; 83880; 84484; 85025; 93005; 96360; 99285; J7030; 82272

== ENCOUNTER 2021-01-11 14:28 | Emergency (ER) | payer OTHER, MEDICARE ==
[~2021-01-11] VITALS: Ht 170.2 cm; Wt 81.0 kg
[~2021-01-11 14:28] MED LIST changes: +LOP25T PO; -METO25TA6 PO
[2021-01-11 15:16] LABS: BASOPHILS # (AUTO) 0.1 X10'3 (0-0.2); BASOPHILS % (AUTO) 1.2 % (0-1); EOSINOPHILS # (AUTO) 0.1 X10'3 (0-0.9); EOSINOPHILS % (AUTO) 2.2 % (0-6); HEMATOCRIT 32.8 % (42.0-52.0); HEMOGLOBIN 10.2 g/dl (14.0-17.9); LYMPHOCYTES # (AUTO) 1.5 X10'3 (1.1-4.8); MEAN CORPUSCULAR HEMOGLOBIN 22.5 PG (27.0-31.0); MEAN CORPUSCULAR HGB CONC 31.1 g/dL (33.0-36.5); MEAN CORPUSCULAR VOLUME 72.3 FL (78-98); MEAN PLATELET VOLUME 7.6 FL (7.4-10.4); MONOCYTES # (AUTO) 0.4 X10'3 (0-0.9); MONOCYTES % (AUTO) 6.1 % (2-12); NEUTROPHILS # (AUTO) 3.8 X10'3 (1.8-7.7); NEUTROPHILS % (AUTO) 65.5 % (42-75); PLATELET COUNT 260 X10'3 (140-440); RED BLOOD COUNT 4.54 X10'6 (4.70-6.10); RED CELL DISTRIBUTION WIDTH 18.1 % (11.5-14.5); WHITE BLOOD COUNT 5.8 X10'3 (4.5-11.0)
[2021-01-11 15:33] LABS: CLARITY,URINE CLEAR (Clear); COLOR,URINE STRAW (Yellow); GLUCOSE, URINE NEGATIVE (Neg); KETONES,URINE NEGATIVE (Neg); LEUKOCYTE ESTERASE ,URINE NEGATIVE (Neg); NITRITES, URINE NEGATIVE (Neg); OCCULT BLOOD,URINE TRACE-INTACT (Neg); PH,URINE 5.5 (4.8-8.0); PROTEIN,URINE NEGATIVE (Neg); UROBILINOGEN,URINE 0.2 E.U/dL (0.2-1.0)
[2021-01-11 15:34] LABS: UA COLLECTION TYPE VOIDED
[2021-01-11 15:43] LABS: BACTERIA,URINE FEW /HPF (Neg); RBC,URINE 0-2 /HPF (0-2); SQUAMOUS EPITHELIAL CELL,UR FEW /LPF (FEW); WBC,URINE 0-4 /HPF (0-4)
[2021-01-11 15:45] LABS: ALANINE AMINOTRANSFERASE 27 U/L (12-78); ALBUMIN 3.7 G/DL (3.4-5.0); ALBUMIN/GLOBULIN RATIO 1.3 (1.1-1.5); ALKALINE PHOSPHATASE 68 IU/L (46-116); ANION GAP 5 (8-16); ASPARTATE AMINO TRANSFERASE 15 U/L (10-37); BILIRUBIN,TOTAL 0.4 MG/DL (0.1-1.0); BLOOD UREA NITROGEN 18 MG/DL (7-18); BUN/CREATININE RATIO 15.4 (5.4-32.0); CALCIUM 8.8 MG/DL (8.5-10.1); CHLORIDE 106 MMOL/L (99-107); CREATININE 1.17 MG/DL (0.60-1.10); GLUCOSE 94 MG/DL (70-104); POTASSIUM 4.1 MMOL/L (3.5-5.1); SODIUM 139 MMOL/L (135-145); TOTAL PROTEIN 6.6 G/DL (6.4-8.2); eGFR 60 ML/MIN
[2021-01-11 17:01] VITALS: BP 148/70
--- NOTE | 2021-01-11 17:12 | NUR ---
CALL TO [facility] AT THIS TIME FOR TRANSPORTATION.
== END 2021-01-11 17:53 | disposition home or self-care (01) ==
LOC: ER 14:29
DX: R53.1 Weakness (principal); R11.0 Nausea; D64.9 Anemia, unspecified; E78.00 Pure hypercholesterolemia, unspecified; I10 Essential (primary) hypertension; K21.9 Gastro-esophageal reflux disease without esophagitis; Z98.890 Other specified postprocedural states; Z79.82 Long term (current) use of aspirin; Z79.899 Other long term (current) drug therapy; Z87.820 Personal history of traumatic brain injury
CPT/HCPCS: 36415; 71045; 80053; 81001; 83880; 84484; 85025; 93005; 99285

== ENCOUNTER 2021-05-31 17:41 | Emergency (ER) | payer OTHER, MEDICARE ==
[~2021-05-31] VITALS: Ht 170.2 cm; Wt 100.0 kg
[~2021-05-31 17:41] MED LIST changes: -QUET100T33 PO; +QUET100T34 PO
--- NOTE | 2021-05-31 17:59 | NUR ---
CONSERVATOR CALLED AND GIVES CONSENT TO TREAT PT. PHONE NUMBER IS IN DEMOGRAPHICS. GIVE HER A CALL IF WE NEED ANY INFO
[2021-05-31 18:07] VITALS: BP 158/77
[2021-05-31] MEDS ORDERED: LIDO700A32 TOP (18:24)
== END 2021-05-31 18:48 | disposition home or self-care (01) ==
LOC: ER 17:42
DX: S39.012A Strain of muscle, fascia and tendon of lower back, initial encounter (principal); R09.89 Other specified symptoms and signs involving the circulatory and respiratory systems; E78.00 Pure hypercholesterolemia, unspecified; I10 Essential (primary) hypertension; K21.9 Gastro-esophageal reflux disease without esophagitis; F17.200 Nicotine dependence, unspecified, uncomplicated; Z79.82 Long term (current) use of aspirin; Z79.899 Other long term (current) drug therapy; X50.3XXA Overexertion from repetitive movements, initial encounter; Y93.89 Activity, other specified; Y92.89 Other specified places as the place of occurrence of the external cause; Y99.8 Other external cause status
CPT/HCPCS: 99283

== ENCOUNTER 2021-07-27 14:17 | Emergency (ER) | payer OTHER, MEDICARE ==
[~2021-07-27] VITALS: Ht 180.3 cm; Wt 82.0 kg
[~2021-07-27 14:17] MED LIST changes: +LIDO700A32 TOP
[2021-07-27 15:32] LABS: BASOPHILS % (AUTO) 0.3 % (0-1); EOSINOPHILS % (AUTO) 0.1 % (0-6); HEMATOCRIT 33.1 % (42.0-52.0); HEMOGLOBIN 10.2 g/dl (14.0-17.9); LYMPHOCYTES # (AUTO) 0.9 X10'3 (1.1-4.8); LYMPHOCYTES % (AUTO) 5.6 % (21-51); MEAN CORPUSCULAR HGB CONC 30.8 g/dL (33.0-36.5); MEAN CORPUSCULAR VOLUME 71.5 FL (78-98); MEAN PLATELET VOLUME 7.7 FL (7.4-10.4); MONOCYTES # (AUTO) 0.7 X10'3 (0-0.9); MONOCYTES % (AUTO) 4.1 % (2-12); NEUTROPHILS # (AUTO) 14.3 X10'3 (1.8-7.7); NEUTROPHILS % (AUTO) 89.9 % (42-75); PLATELET COUNT 259 X10'3 (140-440); RED BLOOD COUNT 4.63 X10'6 (4.70-6.10); RED CELL DISTRIBUTION WIDTH 16.3 % (11.5-14.5); WHITE BLOOD COUNT 15.9 X10'3 (4.5-11.0)
[2021-07-27 15:44] LABS: ALANINE AMINOTRANSFERASE 35 U/L (12-78); ALBUMIN 3.6 G/DL (3.4-5.0); ALBUMIN/GLOBULIN RATIO 1.1 (1.1-1.5); ALKALINE PHOSPHATASE 76 IU/L (46-116); ANION GAP 10 (8-16); ASPARTATE AMINO TRANSFERASE 18 U/L (10-37); BILIRUBIN,TOTAL 0.5 MG/DL (0.1-1.0); BLOOD UREA NITROGEN 26 MG/DL (7-18); BUN/CREATININE RATIO 27.4 (5.4-32.0); CALCIUM 8.5 MG/DL (8.5-10.1); CHLORIDE 103 MMOL/L (99-107); CREATININE 0.95 MG/DL (0.60-1.10); GLUCOSE 106 MG/DL (70-104); POTASSIUM 3.6 MMOL/L (3.5-5.1); SODIUM 140 MMOL/L (135-145); TOTAL CARBON DIOXIDE 26.6 MMOL/L (24-32); TOTAL PROTEIN 6.8 G/DL (6.4-8.2); eGFR 77 ML/MIN
[2021-07-27 15:53] LABS: MAGNESIUM 1.9 MG/DL (1.5-2.4)
[2021-07-27] MEDS ORDERED: CefTRIAXone/D5W-Rocephin 1gm 50 ML IV ONE (16:30)
[2021-07-27] MEDS ORDERED: azithromycin/NS 500mg/250ml 250 ML IV ONE (16:30)
[2021-07-27] MEDS ORDERED: normal saline 1000ml 1,000 ML IV ONE (16:30)
--- NOTE | 2021-07-27 17:13 | NUR ---
SPOKE WITH DEONDRE(CONSERVATOR) AND SHE HAS THE PATIENT'S MED LIST IF WE NEED IT.
[2021-07-27] MEDS ORDERED: LEVO500T90 PO (17:34)
[2021-07-27] MEDS ORDERED: levoFLOXACIN 750MG TABLET PO ONE (17:35)
[2021-07-27 20:17] VITALS: BP 151/83
[2021-07-27 21:25] LABS: TOTAL CELLS COUNTED 100
[2021-07-27 21:29] LABS: PLATELET ESTIMATE NORMAL
[2021-07-27 21:30] LABS: ANISOCYTOSIS 1+; POLYCHROMASIA FEW; TEAR DROP CELLS FEW
== END 2021-07-27 20:15 | disposition home or self-care (01) ==
LOC: ER 14:18
DX: J18.9 Pneumonia, unspecified organism (principal); Z20.822 Contact with and (suspected) exposure to COVID-19; R42 Dizziness and giddiness; R09.89 Other specified symptoms and signs involving the circulatory and respiratory systems; E78.00 Pure hypercholesterolemia, unspecified; I10 Essential (primary) hypertension; K21.9 Gastro-esophageal reflux disease without esophagitis; F32.9 Major depressive disorder, single episode, unspecified; Z98.890 Other specified postprocedural states; Z79.82 Long term (current) use of aspirin; Z79.2 Long term (current) use of antibiotics; Z79.899 Other long term (current) drug therapy
CPT/HCPCS: 36415; 71045; 80053; 83735; 83880; 84145; 84484; 85007; 85025; 87635; 93005; 96365; 96366; 96368; 99285; C9803; J0456; J0696; J7030

== ENCOUNTER 2021-11-29 18:51 | Emergency (ER) | payer OTHER, MEDICARE ==
[~2021-11-29] VITALS: Ht 182.9 cm; Wt 100.0 kg
--- NOTE | 2021-11-29 19:13 | NUR ---
COMPLETED THOROUGH NEURO ASSESSMENT. NO NEURO DEFICITS AT THIS TIME. PT IS A+OX4
[2021-11-29 19:48] LABS: BASOPHILS # (AUTO) 0.1 X10'3 (0-0.2); EOSINOPHILS # (AUTO) 0.1 X10'3 (0-0.9); EOSINOPHILS % (AUTO) 2.2 % (0-6); HEMATOCRIT 27.7 % (42.0-52.0); HEMOGLOBIN 8.5 g/dl (14.0-17.9); LYMPHOCYTES # (AUTO) 1.5 X10'3 (1.1-4.8); LYMPHOCYTES % (AUTO) 29.6 % (21-51); MEAN CORPUSCULAR HEMOGLOBIN 20.7 PG (27.0-31.0); MEAN CORPUSCULAR HGB CONC 30.8 g/dL (33.0-36.5); MEAN CORPUSCULAR VOLUME 67.1 FL (78-98); MEAN PLATELET VOLUME 7.4 FL (7.4-10.4); MONOCYTES # (AUTO) 0.4 X10'3 (0-0.9); MONOCYTES % (AUTO) 7.8 % (2-12); NEUTROPHILS # (AUTO) 3.1 X10'3 (1.8-7.7); NEUTROPHILS % (AUTO) 59.4 % (42-75); PLATELET COUNT 306 X10'3 (140-440); RED BLOOD COUNT 4.14 X10'6 (4.70-6.10); RED CELL DISTRIBUTION WIDTH 17.5 % (11.5-14.5); WHITE BLOOD COUNT 5.2 X10'3 (4.5-11.0)
[2021-11-29 20:07] LABS: ALANINE AMINOTRANSFERASE 24 U/L (12-78); ALBUMIN 3.5 G/DL (3.4-5.0); ALBUMIN/GLOBULIN RATIO 1.2 (1.1-1.5); ALKALINE PHOSPHATASE 66 IU/L (46-116); ANION GAP 7 (8-16); ASPARTATE AMINO TRANSFERASE 17 U/L (10-37); BILIRUBIN,TOTAL 0.2 MG/DL (0.1-1.0); BLOOD UREA NITROGEN 18 MG/DL (7-18); BUN/CREATININE RATIO 19.1 (5.4-32.0); CALCIUM 8.2 MG/DL (8.5-10.1); CHLORIDE 105 MMOL/L (99-107); CREATININE 0.94 MG/DL (0.60-1.10); GLUCOSE 89 MG/DL (70-104); POTASSIUM 4.1 MMOL/L (3.5-5.1); SODIUM 140 MMOL/L (135-145); TOTAL CARBON DIOXIDE 28.1 MMOL/L (24-32); TOTAL PROTEIN 6.4 G/DL (6.4-8.2); eGFR 78 ML/MIN
[2021-11-29 20:44] LABS: ANISOCYTOSIS 1+; MICROCYTOSIS 2+; PLATELET ESTIMATE NORMAL
[2021-11-29 20:45] LABS: ELLIPTOCYTES FEW; POLYCHROMASIA FEW; TEAR DROP CELLS FEW
[2021-11-29 20:46] LABS: BURR CELLS FEW
[2021-11-29 21:13] VITALS: BP 147/76
--- NOTE | 2021-11-29 22:35 | NUR ---
Patient road tested and found to be 97% while ambulating on room air. Patient passed PO challenge. Findings communicated to provider Corey.
--- NOTE | 2021-11-29 22:39 | NUR ---
CALLED [facility] FOR PT ETA 45 MIN
== END 2021-11-29 22:47 | disposition home or self-care (01) ==
LOC: ER 18:52
DX: R53.1 Weakness (principal); R42 Dizziness and giddiness; E78.00 Pure hypercholesterolemia, unspecified; I10 Essential (primary) hypertension; K21.9 Gastro-esophageal reflux disease without esophagitis; F32.A Depression, unspecified; Z86.2 Personal history of diseases of the blood and blood-forming organs and certain disorders involving the immune mechanism; Z98.890 Other specified postprocedural states; Z79.82 Long term (current) use of aspirin; Z79.899 Other long term (current) drug therapy
CPT/HCPCS: 36415; 70450; 71045; 80053; 83880; 84484; 85008; 85025; 93005; 99285

== ENCOUNTER 2022-06-29 15:18 | Emergency (ER) | payer OTHER, MEDICARE ==
[~2022-06-29] VITALS: Ht 172.7 cm; Wt 96.0 kg
[2022-06-29 15:55] LABS: BASOPHILS # (AUTO) 0.1 X10'3 (0-0.2); BASOPHILS % (AUTO) 0.6 % (0-1); EOSINOPHILS # (AUTO) 0.2 X10'3 (0-0.9); EOSINOPHILS % (AUTO) 1.8 % (0-6); LYMPHOCYTES # (AUTO) 1.2 X10'3 (1.1-4.8); LYMPHOCYTES % (AUTO) 13.2 % (21-51); MEAN PLATELET VOLUME 8.2 FL (7.4-10.4); MONOCYTES # (AUTO) 0.5 X10'3 (0-0.9); MONOCYTES % (AUTO) 5.4 % (2-12); NEUTROPHILS # (AUTO) 7.3 X10'3 (1.8-7.7); RED CELL DISTRIBUTION WIDTH 18.2 % (11.5-14.5); WHITE BLOOD COUNT 9.2 X10'3 (4.5-11.0)
[2022-06-29] MEDS ORDERED: dexamethasone sod phosphate 10mg/ml inj IV STA (16:07)
[2022-06-29 16:10] LABS: ALANINE AMINOTRANSFERASE 18 U/L (12-78); ALBUMIN 3.2 G/DL (3.4-5.0); ALKALINE PHOSPHATASE 76 IU/L (46-116); ANION GAP 9 (8-16); ASPARTATE AMINO TRANSFERASE 14 U/L (10-37); BILIRUBIN,TOTAL 0.3 MG/DL (0.1-1.0); BLOOD UREA NITROGEN 17 MG/DL (7-18); CALCIUM 8.4 MG/DL (8.5-10.1); CHLORIDE 103 MMOL/L (99-107); GLUCOSE 127 MG/DL (70-104); POTASSIUM 3.9 MMOL/L (3.5-5.1); SODIUM 137 MMOL/L (135-145); TOTAL CARBON DIOXIDE 25.1 MMOL/L (24-32); TOTAL PROTEIN 6.4 G/DL (6.4-8.2); eGFR 72 ML/MIN
[2022-06-29] MEDS ORDERED: normal saline 1000ML IV soln IVB ONE (16:10)
[2022-06-29] MEDS ORDERED: albuterol 2.5 MG/3 ML nebule NEB ONE (16:10)
[2022-06-29 16:14] LABS: HEMATOCRIT 25.6 % (42.0-52.0); MEAN CORPUSCULAR VOLUME 61.9 FL (78-98); RED BLOOD COUNT 4.14 X10'6 (4.70-6.10)
[2022-06-29 16:15] LABS: MEAN CORPUSCULAR HEMOGLOBIN 19.2 PG (27.0-31.0); MEAN CORPUSCULAR HGB CONC 31.1 g/dL (33.0-36.5); PLATELET COUNT 259 X10'3 (140-440)
--- NOTE | 2022-06-29 16:17 | NUR ---
RT CALLED FOR BREATHING TX.
[2022-06-29 16:22] LABS: ANISOCYTOSIS 2+; ELLIPTOCYTES 1+; HYPOCHROMASIA 2+; MICROCYTOSIS 2+; PLATELET ESTIMATE NORMAL
[2022-06-29 16:23] LABS: ACANTHOCYTES FEW; BURR CELLS 1+; TEAR DROP CELLS FEW
[2022-06-29 17:24] VITALS: BP 133/70
[2022-06-29] MEDS ORDERED: DOXY-135 PO (17:52)
[2022-06-29] MEDS ORDERED: ALBU8HFA PO (17:52)
[2022-06-29] MEDS ORDERED: PRED20TA PO (17:52)
[2022-06-29] MEDS ORDERED: DOXYCYCLINE 100MG CAPSULE PO STA (17:54)
== END 2022-06-29 19:32 | disposition home or self-care (01) ==
LOC: ER 15:18
DX: J40 Bronchitis, not specified as acute or chronic (principal); E78.00 Pure hypercholesterolemia, unspecified; Z20.822 Contact with and (suspected) exposure to COVID-19; I10 Essential (primary) hypertension; F32.A Depression, unspecified; K21.9 Gastro-esophageal reflux disease without esophagitis; Z79.899 Other long term (current) drug therapy; Z79.82 Long term (current) use of aspirin; Z79.1 Long term (current) use of non-steroidal anti-inflammatories (NSAID)
CPT/HCPCS: 36415; 71045; 80053; 83880; 84145; 84484; 85008; 85025; 93005; 94640; 96361; 96374; 99285; C9803; J1100; J7030; J7040; 94760; A4615

== ENCOUNTER 2022-09-27 14:49 | Inpatient (IN) | payer OTHER, MEDICARE ==
[~2022-09-27] VITALS: Ht 180.3 cm; Wt 89.1 kg
[2022-09-27] MEDS ORDERED: normal saline 1000ML IV soln IVB ONE (14:55)
--- NOTE | 2022-09-27 15:07 | NUR ---
DEONDRE SY CONSERVATOR [phone]
[2022-09-27] MEDS ORDERED: methylPREDNISolone sod succ 125mg/2ml vial IV ONE (15:10)
[2022-09-27] MEDS ORDERED: ipratropium/albuterol 3ml nebule NEB ONE (15:10)
[2022-09-27 15:47] LABS: ALANINE AMINOTRANSFERASE 19 U/L (12-78); ALBUMIN 3.3 G/DL (3.4-5.0); ALBUMIN/GLOBULIN RATIO 1.1 (1.1-1.5); ALKALINE PHOSPHATASE 88 IU/L (46-116); ANION GAP 7 (8-16); ASPARTATE AMINO TRANSFERASE 14 U/L (10-37); BILIRUBIN,TOTAL 0.4 MG/DL (0.1-1.0); BLOOD UREA NITROGEN 17 MG/DL (7-18); BUN/CREATININE RATIO 22.4 (5.4-32.0); CALCIUM 8.1 MG/DL (8.5-10.1); CHLORIDE 106 MMOL/L (99-107); CREATININE 0.76 MG/DL (0.60-1.10); GLUCOSE 93 MG/DL (70-104); POTASSIUM 4.4 MMOL/L (3.5-5.1); SODIUM 140 MMOL/L (135-145); TOTAL CARBON DIOXIDE 27.4 MMOL/L (24-32); TOTAL PROTEIN 6.3 G/DL (6.4-8.2); eGFR > 90 ML/MIN
[2022-09-27] MEDS ORDERED: pantoprazole 40MG/NS 100ML BAG 100 ML IV SCH ×3 (16:15→21:00)
[2022-09-27 16:45] LABS: RED BLOOD COUNT 3.64 X10'6 (4.70-6.10); WHITE BLOOD COUNT 5.3 X10'3 (4.5-11.0)
[2022-09-27 16:47] LABS: HEMATOCRIT 21.7 % (42.0-52.0); HEMOGLOBIN 6.3 g/dl (14.0-17.9); MEAN CORPUSCULAR HEMOGLOBIN 17.4 PG (27.0-31.0); MEAN CORPUSCULAR HGB CONC 29.2 g/dL (33.0-36.5); MEAN CORPUSCULAR VOLUME 59.5 FL (78-98)
[2022-09-27 16:48] LABS: BASOPHILS % (AUTO) 0.9 % (0-1); EOSINOPHILS # (AUTO) 0.2 X10'3 (0-0.9); EOSINOPHILS % (AUTO) 3.7 % (0-6); LYMPHOCYTES # (AUTO) 1.2 X10'3 (1.1-4.8); LYMPHOCYTES % (AUTO) 23.5 % (21-51); MEAN PLATELET VOLUME 7.9 FL (7.4-10.4); MONOCYTES # (AUTO) 0.4 X10'3 (0-0.9); MONOCYTES % (AUTO) 8.5 % (2-12); NEUTROPHILS # (AUTO) 3.4 X10'3 (1.8-7.7); NEUTROPHILS % (AUTO) 63.4 % (42-75); PLATELET COUNT 303 X10'3 (140-440); RED CELL DISTRIBUTION WIDTH 17.5 % (11.5-14.5)
[2022-09-27] MEDS ORDERED: pantoprazole 40mg IV 80 MG in normal saline 100ml IV soln 100 ML IV ONE (18:00)
[2022-09-27 18:05] LABS: CLARITY,URINE CLEAR (Clear); COLOR,URINE YELLOW (Yellow); GLUCOSE, URINE NEGATIVE (Neg); KETONES,URINE NEGATIVE (Neg); LEUKOCYTE ESTERASE ,URINE NEGATIVE (Neg); NITRITES, URINE NEGATIVE (Neg); OCCULT BLOOD,URINE NEGATIVE (Neg); PROTEIN,URINE NEGATIVE (Neg)
[2022-09-27 18:07] LABS: UA COLLECTION TYPE VOIDED
[2022-09-27 18:34] VITALS: BP 159/75
[2022-09-27 18:49] LABS: PLATELET ESTIMATE NORMAL
[2022-09-27 18:50] LABS: ANISOCYTOSIS 2+; MICROCYTOSIS 2+
[2022-09-27 18:51] LABS: ACANTHOCYTES FEW; BURR CELLS 1+; HYPOCHROMASIA 2+
[2022-09-27 18:53] LABS: ELLIPTOCYTES 2+
[2022-09-27] MEDS ORDERED: ASPI-1397 PO (18:56)
[2022-09-27] MEDS ORDERED: ATOR40TA72 PO (18:56)
[2022-09-27] MEDS ORDERED: BUSP10TA3 PO (18:56)
[2022-09-27] MEDS ORDERED: METO25TA6 PO (18:56)
[2022-09-27] MEDS ORDERED: IPRA4AER IH (18:56)
[2022-09-27] MEDS ORDERED: TRAZ-256 PO (18:57)
[2022-09-27] MEDS ORDERED: CLOP75TA34 PO (18:57)
[2022-09-27 18:58] VITALS: BP 154/79
[2022-09-27] MEDS ORDERED: CALC500T63 PO (18:59)
[2022-09-27] MEDS ORDERED: QUET100T34 PO (19:00)
[2022-09-27] MEDS ORDERED: CYAN500T71 PO (19:00)
[2022-09-27] MEDS ORDERED: ipratropium/albuterol 3ml nebule NEB PRN (20:40)
[2022-09-27] MEDS ORDERED: traZODone 50mg tablet PO PRN (20:40)
[2022-09-27] MEDS ORDERED: acetaminophen 325mg tablet PO PRN ×2 (20:45)
[2022-09-27] MEDS ORDERED: mag hydrox/Alum hydrox/simeth 30ml oral suspension PO PRN (20:45)
[2022-09-27] MEDS ORDERED: morphine 2 MG/ML inj. syringe IV PRN ×2 (20:45)
[2022-09-27] MEDS ORDERED: potassium Cl 20 mEq SR tablet PO PRN ×2 (20:45)
[2022-09-27] MEDS ORDERED: magnesium 4gm in 100ml NS 100 ML IV PRN (20:45)
[2022-09-27] MEDS ORDERED: magnesium hydroxide 30ml (MOM) UD suspension PO PRN (20:45)
[2022-09-27] MEDS ORDERED: HYDROcodone/acetaminophen 5mg/325mg tablet PO PRN (20:45)
[2022-09-27] MEDS ORDERED: HYDROcodone/acetaminophen 10/325mg tab PO PRN (20:45)
[2022-09-27] MEDS ORDERED: ondansetron/PF 4mg/2ml inj IV PRN (20:45)
[2022-09-27] MEDS ORDERED: potassium Cl 40MEQ/1/2NS 520ml 520 ML IV PRN (20:45)
[2022-09-27] MEDS ORDERED: magnesium Cl slow-release 64mg tablet PO PRN (20:45)
[2022-09-27] MEDS ORDERED: acetaminophen 650mg rectal suppository RC PRN (20:45)
[2022-09-27] MEDS ORDERED: ondansetron 4mg rapidly disintigrating tab PO PRN (20:45)
[2022-09-27 21:17] LABS: HEMOGLOBIN A1C 5.7 % (4.5-6.2)
[2022-09-27 21:29] LABS: MEAN PLATELET VOLUME 8.2 FL (7.4-10.4); PLATELET COUNT 307 X10'3 (140-440); WHITE BLOOD COUNT 6.6 X10'3 (4.5-11.0)
[2022-09-27 21:57] LABS: CLARITY,URINE CLEAR (Clear); COLOR,URINE YELLOW (Yellow); GLUCOSE, URINE NEGATIVE (Neg); KETONES,URINE NEGATIVE (Neg); LEUKOCYTE ESTERASE ,URINE NEGATIVE (Neg); NITRITES, URINE NEGATIVE (Neg); OCCULT BLOOD,URINE NEGATIVE (Neg); PROTEIN,URINE NEGATIVE (Neg)
[2022-09-27 22:00] LABS: UA COLLECTION TYPE CLN CATCH MIDSTREAM
[2022-09-27 22:04] LABS: HEMATOCRIT 25.4 % (42.0-52.0); HEMOGLOBIN 8.2 g/dl (14.0-17.9); RED BLOOD COUNT 4.11 X10'6 (4.70-6.10)
[2022-09-27 22:05] LABS: MEAN CORPUSCULAR HEMOGLOBIN 20.1 PG (27.0-31.0); MEAN CORPUSCULAR HGB CONC 32.4 g/dL (33.0-36.5); MEAN CORPUSCULAR VOLUME 61.9 FL (78-98); RED CELL DISTRIBUTION WIDTH 18.7 % (11.5-14.5)
[2022-09-27 22:38] VITALS: BP 176/101
[2022-09-27 22:59] VITALS: BP 171/88
[2022-09-27] MEDS: pantoprazole 40MG/NS 100ML BAG 100 ML IV SCH (23:14)
[2022-09-27] MEDS: quetiapine 100mg tablet PO SCH (23:15)
[2022-09-27] MEDS: normal saline 1000ml 1,000 ML IV SCH (23:30)
[2022-09-28] VITALS (11 sets, daily range): BP systolic 130–189; BP diastolic 66–95
--- NOTE | 2022-09-28 | NUR ---
Patient in room PCU 3025. I have received report from Yue SOLITARIO RN and had the opportunity to ask questions and assume patient care.
--- NOTE | 2022-09-28 00:20 | NUR ---
pt arrived on the unit with blood infusion running, in no apparent distress
[2022-09-28] MEDS: pantoprazole 40MG/NS 100ML BAG 100 ML IV SCH ×4 (02:16→21:00)
[2022-09-28 06:32] LABS: BASOPHILS % (AUTO) 0.1 % (0-1); EOSINOPHILS % (AUTO) 0 % (0-6); HEMATOCRIT 27.4 % (42.0-52.0); HEMOGLOBIN 8.2 g/dl (14.0-17.9); LYMPHOCYTES # (AUTO) 0.4 X10'3 (1.1-4.8); MEAN CORPUSCULAR HEMOGLOBIN 19.5 PG (27.0-31.0); MEAN CORPUSCULAR HGB CONC 30.1 g/dL (33.0-36.5); MEAN CORPUSCULAR VOLUME 64.8 FL (78-98); MEAN PLATELET VOLUME 8.3 FL (7.4-10.4); MONOCYTES # (AUTO) 0.1 X10'3 (0-0.9); MONOCYTES % (AUTO) 1.6 % (2-12); NEUTROPHILS # (AUTO) 3.6 X10'3 (1.8-7.7); NEUTROPHILS % (AUTO) 88.3 % (42-75); PLATELET COUNT 283 X10'3 (140-440); RED BLOOD COUNT 4.22 X10'6 (4.70-6.10); RED CELL DISTRIBUTION WIDTH 20.5 % (11.5-14.5); WHITE BLOOD COUNT 4.1 X10'3 (4.5-11.0)
[2022-09-28 06:43] LABS: ALANINE AMINOTRANSFERASE 19 U/L (12-78); ALBUMIN 3.4 G/DL (3.4-5.0); ALBUMIN/GLOBULIN RATIO 1.2 (1.1-1.5); ALKALINE PHOSPHATASE 82 IU/L (46-116); ANION GAP 7 (8-16); ASPARTATE AMINO TRANSFERASE 19 U/L (10-37); BILIRUBIN,TOTAL 0.9 MG/DL (0.1-1.0); BLOOD UREA NITROGEN 21 MG/DL (7-18); BUN/CREATININE RATIO 25.9 (5.4-32.0); CALCIUM 8.5 MG/DL (8.5-10.1); CHLORIDE 107 MMOL/L (99-107); CHOL/HDL RATIO 1.9 (0.00-4.99); CHOLESTEROL 124 MG/DL (0-200); CREATININE 0.81 MG/DL (0.60-1.10); GLUCOSE 122 MG/DL (70-104); HDL CHOLESTEROL 65 MG/DL (35-60); LDL CHOLESTEROL 60 MG/DL (50-100); MAGNESIUM 1.9 MG/DL (1.5-2.4); PHOSPHORUS 3.3 MG/DL (2.3-4.5); POTASSIUM 4.4 MMOL/L (3.5-5.1); SODIUM 138 MMOL/L (135-145); TOTAL CARBON DIOXIDE 23.6 MMOL/L (24-32); TOTAL PROTEIN 6.3 G/DL (6.4-8.2); eGFR > 90 ML/MIN
--- NOTE | 2022-09-28 06:59 | NUR ---
Patient in room U 3025. I have received report from Vania HERNANDEZ and had the opportunity to ask questions and assume patient care. Addendum: 09/28/22 at 0700 by Uriel Suero LVN Amended: Links added.
[2022-09-28 07:13] LABS: TRIGLYCERIDES < 15 MG/DL (20-135)
--- NOTE | 2022-09-28 07:32 | NUR ---
Problems reprioritized. Patient report given, questions answered & plan of care reviewed with Uriel DON.
[2022-09-28] MEDS: busPIRone 5mg tablet PO SCH ×2 (07:57→19:16)
[2022-09-28] MEDS: cyanocobalamin 500mcg tablet PO SCH (07:57)
[2022-09-28] MEDS: metoprolol tartrate 12.5mg (1/2 tablet) PO SCH ×2 (07:58→19:15)
[2022-09-28] MEDS: atorvastatin 20mg tablet PO SCH (07:58)
[2022-09-28] MEDS: docusate sod 100mg capsule PO SCH ×2 (07:59→19:15)
[2022-09-28] MEDS: K and/or MAG REPLACEMENT MC SCH ×2 (08:00→20:00)
--- NOTE | 2022-09-28 10:08 | NUR ---
Pt leaving for EGD procedure
[2022-09-28 10:23] LABS: HEMATOCRIT 28.7 % (42.0-52.0); HEMOGLOBIN 8.4 g/dl (14.0-17.9); MEAN CORPUSCULAR HGB CONC 29.2 g/dL (33.0-36.5); MEAN CORPUSCULAR VOLUME 64.9 FL (78-98); MEAN PLATELET VOLUME 8.3 FL (7.4-10.4); PLATELET COUNT 315 X10'3 (140-440); RED BLOOD COUNT 4.43 X10'6 (4.70-6.10); RED CELL DISTRIBUTION WIDTH 20.9 % (11.5-14.5); WHITE BLOOD COUNT 4.9 X10'3 (4.5-11.0)
[2022-09-28] MEDS ORDERED: fentaNYL/PF 50MCG/1 ML 2ML syringe ONE (10:43)
[2022-09-28] MEDS ORDERED: MIDAZolam 1 MG/ML 5ML VIAL ONE (10:43)
[2022-09-28] MEDS ORDERED: LIDOcaine Viscous 15ml cup ONE (10:43)
[2022-09-28] MEDS ORDERED: nicotine 21mg patch - 24 hr TD ONE (11:05)
--- NOTE | 2022-09-28 11:23 | NUR ---
Malnutrition Consult: Pt admit DX UGIB pending EGD today; reports unsure of wt loss w/ decreased intake LACING CUTTER per EMR. Pt pending physician assessment though no edema noted per EMR. Pt w/ fluctuating reported vs scaled wt hx past two years in EMR though current bed scaled wt roughly consistent w/ prior wt trends. Pt appears WD/WN per ED note and at this time lacks minimum malnutrition criteria. Will monitor for further malnutrition criteria this admit. Addendum: 09/28/22 at [address] Amended: Links added.
[2022-09-28] MEDS ORDERED: PEG 3350/Na sulf,bicarb,Cl/KCl oral sol 4 liter bottle PO ONE (12:25)
--- NOTE | 2022-09-28 12:50 | NUR ---
Pt arrived from EGD procedure
[2022-09-28 15:20] LABS: HEMATOCRIT 28.2 % (42.0-52.0); HEMOGLOBIN 8.6 g/dl (14.0-17.9); MEAN CORPUSCULAR HEMOGLOBIN 19.7 PG (27.0-31.0); MEAN CORPUSCULAR HGB CONC 30.6 g/dL (33.0-36.5); MEAN CORPUSCULAR VOLUME 64.5 FL (78-98); MEAN PLATELET VOLUME 7.4 FL (7.4-10.4); PLATELET COUNT 300 X10'3 (140-440); RED BLOOD COUNT 4.37 X10'6 (4.70-6.10); RED CELL DISTRIBUTION WIDTH 20.7 % (11.5-14.5); WHITE BLOOD COUNT 8.4 X10'3 (4.5-11.0)
--- NOTE | 2022-09-28 16:01 | NUR ---
Pt ate 50% of lemon clear pureed Addendum: 09/28/22 at 1608 by Uriel Suero LVN Amended: Links added.
--- NOTE | 2022-09-28 18:37 | NUR ---
Problems reprioritized. Patient report given, questions answered & plan of care reviewed with Dayne DON. Bedside report given.
[2022-09-28] MEDS ORDERED: sodium ferric gluc complex inj 125 MG in normal saline 100ml IV soln 100 ML IV SCH (22:15)
[2022-09-29] VITALS (10 sets, daily range): BP systolic 108–172; BP diastolic 67–96
[2022-09-29] MEDS: quetiapine 100mg tablet PO SCH ×2 (02:33→20:31)
[2022-09-29] MEDS: pantoprazole 40MG/NS 100ML BAG 100 ML IV SCH ×5 (02:33→19:28)
--- NOTE | 2022-09-29 02:41 | NUR ---
quetiapine was given at 0230 because pt had to finish his golytely, so opted to postpone original give time of 2100, after 3 iv pulls, and 4 people trying to get iv with about 7 tries and 3/4 of med given, figured sleep at this time is best option
--- NOTE | 2022-09-29 05:31 | NUR ---
I AGREE WITH MADHU'S ASSESSMENT OF THIS PT
[2022-09-29 07:23] LABS: BASOPHILS # (AUTO) 0.1 X10'3 (0-0.2); BASOPHILS % (AUTO) 0.9 % (0-1); EOSINOPHILS % (AUTO) 0.6 % (0-6); HEMATOCRIT 26.7 % (42.0-52.0); HEMOGLOBIN 8.2 g/dl (14.0-17.9); LYMPHOCYTES # (AUTO) 1.3 X10'3 (1.1-4.8); LYMPHOCYTES % (AUTO) 18.7 % (21-51); MEAN CORPUSCULAR HEMOGLOBIN 19.9 PG (27.0-31.0); MEAN CORPUSCULAR HGB CONC 30.8 g/dL (33.0-36.5); MEAN CORPUSCULAR VOLUME 64.6 FL (78-98); MEAN PLATELET VOLUME 7.2 FL (7.4-10.4); MONOCYTES # (AUTO) 0.5 X10'3 (0-0.9); NEUTROPHILS # (AUTO) 5.1 X10'3 (1.8-7.7); NEUTROPHILS % (AUTO) 72.8 % (42-75); PLATELET COUNT 270 X10'3 (140-440); RED BLOOD COUNT 4.13 X10'6 (4.70-6.10); RED CELL DISTRIBUTION WIDTH 20.7 % (11.5-14.5); WHITE BLOOD COUNT 7.1 X10'3 (4.5-11.0)
[2022-09-29 07:39] LABS: ALANINE AMINOTRANSFERASE 16 U/L (12-78); ALBUMIN 3.4 G/DL (3.4-5.0); ALBUMIN/GLOBULIN RATIO 1.3 (1.1-1.5); ALKALINE PHOSPHATASE 84 IU/L (46-116); ANION GAP 6 (8-16); ASPARTATE AMINO TRANSFERASE 19 U/L (10-37); BILIRUBIN,TOTAL 0.6 MG/DL (0.1-1.0); BLOOD UREA NITROGEN 17 MG/DL (7-18); BUN/CREATININE RATIO 21.8 (5.4-32.0); CALCIUM 8.3 MG/DL (8.5-10.1); CHLORIDE 106 MMOL/L (99-107); CREATININE 0.78 MG/DL (0.60-1.10); GLUCOSE 84 MG/DL (70-104); MAGNESIUM 1.8 MG/DL (1.5-2.4); POTASSIUM 3.6 MMOL/L (3.5-5.1); SODIUM 139 MMOL/L (135-145); TOTAL CARBON DIOXIDE 27.1 MMOL/L (24-32); TOTAL PROTEIN 6.1 G/DL (6.4-8.2); eGFR > 90 ML/MIN
[2022-09-29] MEDS: K and/or MAG REPLACEMENT MC SCH ×2 (08:00→20:00)
--- NOTE | 2022-09-29 08:15 | NUR ---
0600 PROTONIX ADMINISTERED AT 0800. BAG TIME IS OFF ON PROTONIX.
[2022-09-29 08:17] LABS: ANISOCYTOSIS 3+; MICROCYTOSIS 2+; PLATELET ESTIMATE NORMAL
[2022-09-29 08:18] LABS: ELLIPTOCYTES 1+; POIKILOCYTOSIS 1+
--- NOTE | 2022-09-29 08:45 | NUR ---
Patient in room U 3025. I have received report from Dayne DON and had the opportunity to ask questions and assume patient care. Addendum: 09/29/22 at 0845 by Uriel Suero LVN Amended: Links added.
[2022-09-29] MEDS: docusate sod 100mg capsule PO SCH ×2 (08:53→20:31)
[2022-09-29] MEDS: atorvastatin 20mg tablet PO SCH (08:54)
[2022-09-29] MEDS: busPIRone 5mg tablet PO SCH ×2 (08:54→20:31)
[2022-09-29] MEDS: cyanocobalamin 500mcg tablet PO SCH (08:54)
[2022-09-29] MEDS: metoprolol tartrate 12.5mg (1/2 tablet) PO SCH ×2 (08:55→20:30)
[2022-09-29] MEDS: nicotine 21mg patch - 24 hr TD SCH (08:55)
[2022-09-29] MEDS ORDERED: furosemide 20 MG/2 ML vial IV ONE (11:20)
--- NOTE | 2022-09-29 11:39 | NUR ---
Relieving Uriel, DROP WIRE ALINER. Patient left for GI lab.
[2022-09-29] MEDS ORDERED: fentaNYL/PF 50MCG/1 ML 2ML syringe ONE (11:42)
--- NOTE | 2022-09-29 14:00 | NUR ---
Pt was at EGD procedure Addendum: 09/29/22 at 1544 by Uriel Suero LVN Amended: Links added. Addendum: 09/29/22 at 1547 by Uriel TIMMONSN Procedure was colonscopy
--- NOTE | 2022-09-29 15:30 | NUR ---
Pt arrived from Colonscopy procedure
--- NOTE | 2022-09-29 15:57 | NUR ---
Paged Page Sent PAGER ID: [phone] MESSAGE: [id number] Arley- Pt arrived from Colonscopy. Per report, polyps removed. Pt needs a diet order for dinner. Hitesh Suero LVN (117 character message out of a maximum of 240) SEND ANOTHER PAGE
--- NOTE | 2022-09-29 15:59 | NUR ---
FLORENCIA Medication Administration: For this medication-pass time frame, all medication were reviewed, dispensed, administered and documented per hospital policy by FLORENCIA Trevino.
--- NOTE | 2022-09-29 15:59 | NUR ---
CASTING HOUSE WORKER documentation: I have reviewed and agree with all interventions, assessments performed and documented by FLORENCIA Trevino.
[2022-09-29] MEDS ORDERED: MIDAZolam 1 MG/ML 5ML VIAL ONE (16:08)
[2022-09-29] MEDS: sodium ferric gluc complex inj 125 MG in normal saline 100ml IV soln 100 ML IV SCH (17:15)
--- NOTE | 2022-09-29 18:20 | NUR ---
Problems reprioritized. Patient report given, questions answered & plan of care reviewed with Katie DON.
--- NOTE | 2022-09-29 18:34 | NUR ---
Patient in room PCU 3025. I have received report from Uriel DON and had the opportunity to ask questions and assume patient care.
[2022-09-29] MEDS: normal saline 1000ml 1,000 ML IV SCH (20:45)
[2022-09-30] MEDS: pantoprazole 40MG/NS 100ML BAG 100 ML IV SCH ×4 (00:41→13:04)
--- NOTE | 2022-09-30 04:14 | NUR ---
Agree with Soco DON except where I documented my findings.
--- NOTE | 2022-09-30 06:40 | NUR ---
Patient in room U 3025. I have received report from Katie DON and had the opportunity to ask questions and assume patient care. Addendum: 09/30/22 at 0640 by Uriel Suero LVN Amended: Links added.
[2022-09-30 07:00] VITALS: BP_SYST 131; BP_SYST 139; BP_DIAS 67; BP_DIAS 72
[2022-09-30 07:03] LABS: ALANINE AMINOTRANSFERASE 19 U/L (12-78); ALBUMIN 3.5 G/DL (3.4-5.0); ALBUMIN/GLOBULIN RATIO 1.2 (1.1-1.5); ALKALINE PHOSPHATASE 92 IU/L (46-116); ANION GAP 9 (8-16); ASPARTATE AMINO TRANSFERASE 18 U/L (10-37); BILIRUBIN,TOTAL 0.6 MG/DL (0.1-1.0); BLOOD UREA NITROGEN 15 MG/DL (7-18); BUN/CREATININE RATIO 17.6 (5.4-32.0); CALCIUM 8.4 MG/DL (8.5-10.1); CHLORIDE 106 MMOL/L (99-107); CREATININE 0.85 MG/DL (0.60-1.10); GLUCOSE 80 MG/DL (70-104); MAGNESIUM 1.9 MG/DL (1.5-2.4); PHOSPHORUS 4.4 MG/DL (2.3-4.5); POTASSIUM 3.4 MMOL/L (3.5-5.1); SODIUM 141 MMOL/L (135-145); TOTAL CARBON DIOXIDE 25.6 MMOL/L (24-32); TOTAL PROTEIN 6.4 G/DL (6.4-8.2); eGFR 87 ML/MIN
[2022-09-30 07:21] LABS: BASOPHILS % (AUTO) 0.4 % (0-1); EOSINOPHILS # (AUTO) 0.3 X10'3 (0-0.9); EOSINOPHILS % (AUTO) 3.4 % (0-6); HEMATOCRIT 29.8 % (42.0-52.0); HEMOGLOBIN 9.1 g/dl (14.0-17.9); LYMPHOCYTES # (AUTO) 1.4 X10'3 (1.1-4.8); LYMPHOCYTES % (AUTO) 17.8 % (21-51); MEAN CORPUSCULAR HGB CONC 30.6 g/dL (33.0-36.5); MEAN CORPUSCULAR VOLUME 65.3 FL (78-98); MEAN PLATELET VOLUME 8.3 FL (7.4-10.4); MONOCYTES # (AUTO) 0.5 X10'3 (0-0.9); MONOCYTES % (AUTO) 6.9 % (2-12); NEUTROPHILS # (AUTO) 5.4 X10'3 (1.8-7.7); NEUTROPHILS % (AUTO) 71.5 % (42-75); PLATELET COUNT 268 X10'3 (140-440); RED BLOOD COUNT 4.57 X10'6 (4.70-6.10); RED CELL DISTRIBUTION WIDTH 21.5 % (11.5-14.5); WHITE BLOOD COUNT 7.6 X10'3 (4.5-11.0)
[2022-09-30 08:00] VITALS: BP_SYST 159; BP_SYST 167; BP_SYST 169; BP_DIAS 67; BP_DIAS 73; BP_DIAS 76
[2022-09-30] MEDS: docusate sod 100mg capsule PO SCH (08:56)
[2022-09-30] MEDS: cyanocobalamin 500mcg tablet PO SCH (08:56)
[2022-09-30] MEDS: atorvastatin 20mg tablet PO SCH (08:57)
[2022-09-30] MEDS: busPIRone 5mg tablet PO SCH (08:57)
[2022-09-30] MEDS: metoprolol tartrate 12.5mg (1/2 tablet) PO SCH (08:57)
[2022-09-30] MEDS: nicotine 21mg patch - 24 hr TD SCH (08:58)
[2022-09-30] MEDS: K and/or MAG REPLACEMENT MC SCH (10:16)
[2022-09-30] MEDS ORDERED: VITC500T PO (10:29)
[2022-09-30] MEDS ORDERED: FERR325T28 PO (10:29)
[2022-09-30] MEDS ORDERED: NICO-687 TD (10:29)
[2022-09-30] MEDS ORDERED: PANT-47 PO (10:29)
[2022-09-30] MEDS ORDERED: DOCU-148 PO (10:31)
[2022-09-30 11:00] VITALS: BP 140/63
[2022-09-30] MEDS: sodium ferric gluc complex inj 125 MG in normal saline 100ml IV soln 100 ML IV SCH (13:00)
[2022-09-30 15:36] VITALS: BP 146/61
--- NOTE | 2022-09-30 16:48 | NUR ---
Conservator Mago Salguero will make follow up appointment for patient at [facility]. She repeated back instructions Addendum: 09/30/22 at 1650 by Uriel Suero LVN Amended: Links added.
--- NOTE | 2022-09-30 16:49 | NUR ---
SUPPORT DIRECTOR documentation: I have reviewed and agree with all interventions, assessments performed and documented by FLORENCIA Trevino.
--- NOTE | 2022-09-30 16:50 | NUR ---
SENIOR DATA INTEGRATION DEVELOPER Medication Administration: For this medication-pass time frame, all medication were reviewed, dispensed, administered and documented per hospital policy by .
[2022-10-04 11:59] LABS: OCCULT BLOOD STOOL POSITIVE (Neg)
== END 2022-09-30 16:26 | disposition home or self-care (01) | DRG 378 ==
LOC: ER 14:49 → ED HOLD 20:50 → PCU 3S 09-28 00:15
PROVIDERS: ADMIT Family Medicine; ATTEND Family Medicine
PROC: 30233N1 Transfusion of Nonautologous Red Blood Cells into Peripheral Vein, Percutaneous Approach (ICD-10-PCS; principal; 2022-09-27)
PROC: 0DJ08ZZ Inspection of Upper Intestinal Tract, Via Natural or Artificial Opening Endoscopic (ICD-10-PCS; 2022-09-28)
PROC: 0DBH8ZZ Excision of Cecum, Via Natural or Artificial Opening Endoscopic (ICD-10-PCS; 2022-09-29)
PROC: 0DBL8ZZ Excision of Transverse Colon, Via Natural or Artificial Opening Endoscopic (ICD-10-PCS; 2022-09-29)
PROC: 0DBP8ZZ Excision of Rectum, Via Natural or Artificial Opening Endoscopic (ICD-10-PCS; 2022-09-29)
PROC: 0DBM8ZZ Excision of Descending Colon, Via Natural or Artificial Opening Endoscopic (ICD-10-PCS; 2022-09-29)
DX: K25.4 Chronic or unspecified gastric ulcer with hemorrhage (principal); D62 Acute posthemorrhagic anemia; K21.00 Gastro-esophageal reflux disease with esophagitis, without bleeding; E78.00 Pure hypercholesterolemia, unspecified; F17.210 Nicotine dependence, cigarettes, uncomplicated; I10 Essential (primary) hypertension; K44.9 Diaphragmatic hernia without obstruction or gangrene; Z66 Do not resuscitate; K57.30 Diverticulosis of large intestine without perforation or abscess without bleeding; D50.9 Iron deficiency anemia, unspecified; K63.5 Polyp of colon; F32.A Depression, unspecified; R35.0 Frequency of micturition; N40.1 Benign prostatic hyperplasia with lower urinary tract symptoms; Z79.02 Long term (current) use of antithrombotics/antiplatelets; Z86.73 Personal history of transient ischemic attack (TIA), and cerebral infarction without residual deficits; Z79.82 Long term (current) use of aspirin; Z79.899 Other long term (current) drug therapy; Z71.6 Tobacco abuse counseling
CPT/HCPCS: 36415; 36430; 36569; 43235; 45385; 70450; 71045; 80053; 80061; 81003; 82272; 83036; 83735; 84100; 84484; 85008; 85025; 85027; 85610; 86885; 86900; 86901; 86920; 87081; 93005; 94640; 94760; 97116; 97161; 97530; 99152; 99153; 99285; A4620; A6258; C1751; C1889; C9113; G0378; J1940; J2250; J2916; J2930; J3010; J3490; J7030; J7040; P9016

== ENCOUNTER 2022-11-26 18:09 | Emergency (ER) | payer OTHER, MEDICARE ==
[~2022-11-26] VITALS: Ht 182.9 cm; Wt 90.3 kg
[~2022-11-26 18:09] MED LIST changes: -ASPI-1071 PO; +ASPI-1397 PO; -ATOR20TA66 PO; +ATOR40TA72 PO; -BUSP10TA11 PO; +BUSP10TA3 PO; +CALC500T63 PO; -CHOL20004 PO; -CITA20TA28 PO; -CLOP75TA15 PO; +CLOP75TA34 PO; +DOCU-148 PO; +IPRA4AER IH; -LIDO700A32 TOP; -LOP25T PO; +METO25TA6 PO; +NICO-687 TD; +PANT-47 PO; -PANT40TA54 PO; -TRAZ-251 PO; +TRAZ-256 PO
[2022-11-26 18:44] VITALS: BP 150/98
[2022-11-26 18:47] LABS: EOSINOPHILS # (AUTO) 0.1 X10'3 (0-0.9); HEMOGLOBIN 11.9 g/dl (14.0-17.9); MEAN PLATELET VOLUME 8.3 FL (7.4-10.4); MONOCYTES # (AUTO) 0.3 X10'3 (0-0.9); NEUTROPHILS # (AUTO) 7.7 X10'3 (1.8-7.7)
[2022-11-26 18:54] LABS: BASOPHILS % (AUTO) 0.4 % (0-1); EOSINOPHILS % (AUTO) 1.4 % (0-6); HEMATOCRIT 37.5 % (42.0-52.0); LYMPHOCYTES # (AUTO) 0.5 X10'3 (1.1-4.8); LYMPHOCYTES % (AUTO) 5.6 % (21-51); MEAN CORPUSCULAR HEMOGLOBIN 25.3 PG (27.0-31.0); MEAN CORPUSCULAR HGB CONC 31.7 g/dL (33.0-36.5); MEAN CORPUSCULAR VOLUME 79.7 FL (78-98); MONOCYTES % (AUTO) 3.3 % (2-12); NEUTROPHILS % (AUTO) 89.3 % (42-75); PLATELET COUNT 278 X10'3 (140-440); RED BLOOD COUNT 4.71 X10'6 (4.70-6.10); RED CELL DISTRIBUTION WIDTH 27.3 % (11.5-14.5); WHITE BLOOD COUNT 8.6 X10'3 (4.5-11.0)
[2022-11-26 19:05] LABS: ALANINE AMINOTRANSFERASE 23 U/L (12-78); ALBUMIN 3.5 G/DL (3.4-5.0); ALBUMIN/GLOBULIN RATIO 1.1 (1.1-1.5); ALKALINE PHOSPHATASE 85 IU/L (46-116); ANION GAP 8 (8-16); ASPARTATE AMINO TRANSFERASE 13 U/L (10-37); BILIRUBIN,TOTAL 0.3 MG/DL (0.1-1.0); BLOOD UREA NITROGEN 17 MG/DL (7-18); BUN/CREATININE RATIO 20.2 (10.0-20.0); CALCIUM 8.8 MG/DL (8.5-10.1); CHLORIDE 105 MMOL/L (99-107); CREATININE 0.84 MG/DL (0.60-1.10); GLUCOSE 100 MG/DL (70-104); MAGNESIUM 1.9 MG/DL (1.5-2.4); POTASSIUM 4.7 MMOL/L (3.5-5.1); SODIUM 141 MMOL/L (135-145); TOTAL CARBON DIOXIDE 28.5 MMOL/L (24-32); TOTAL PROTEIN 6.6 G/DL (6.4-8.2); eGFR 88 ML/MIN
[2022-11-26 19:17] LABS: PLATELET ESTIMATE NORMAL
[2022-11-26 19:18] LABS: ACANTHOCYTES FEW; ANISOCYTOSIS 3+; ELLIPTOCYTES 1+; MICROCYTOSIS 1+; TEAR DROP CELLS 1+
[2022-11-26] MEDS ORDERED: albuterol 2.5 MG/3 ML nebule NEB ONE (19:30)
[2022-11-26] MEDS ORDERED: predniSONE 20 mg tablet PO ONE (19:30)
[2022-11-26] MEDS ORDERED: PRED20TA PO (20:19)
[2022-11-26 20:31] LABS: CLARITY,URINE CLOUDY (Clear); COLOR,URINE YELLOW (Yellow); GLUCOSE, URINE NEGATIVE (Neg); KETONES,URINE NEGATIVE (Neg); LEUKOCYTE ESTERASE ,URINE NEGATIVE (Neg); NITRITES, URINE NEGATIVE (Neg); OCCULT BLOOD,URINE NEGATIVE (Neg); PROTEIN,URINE NEGATIVE (Neg)
[2022-11-26 20:35] LABS: UA COLLECTION TYPE CLN CATCH MIDSTREAM
[2022-11-26 20:44] LABS: RBC,URINE 0-2 /HPF (0-2); WBC,URINE 0-4 /HPF (0-4)
[2022-11-26 20:45] LABS: AMORPHOUS PHOSPHATES 3+; BACTERIA,URINE NONE SEEN /HPF (Neg); MUCUS STRANDS NONE SEEN /LPF (Neg); SQUAMOUS EPITHELIAL CELL,UR FEW /LPF (FEW)
== END 2022-11-26 21:22 | disposition home or self-care (01) ==
LOC: ER 18:09
DX: J44.1 Chronic obstructive pulmonary disease with (acute) exacerbation (principal); Z20.822 Contact with and (suspected) exposure to COVID-19; E78.00 Pure hypercholesterolemia, unspecified; I10 Essential (primary) hypertension; K21.9 Gastro-esophageal reflux disease without esophagitis; D64.9 Anemia, unspecified; F32.A Depression, unspecified; F17.200 Nicotine dependence, unspecified, uncomplicated; Z79.899 Other long term (current) drug therapy; Z79.82 Long term (current) use of aspirin
CPT/HCPCS: 36415; 71045; 80053; 81001; 83605; 83735; 84145; 85008; 85025; 87040; 87811; 93005; 94640; 99285; J7512; 94760

== ENCOUNTER 2022-12-07 02:34 | Inpatient (IN) | payer OTHER, MEDICARE ==
[~2022-12-07] VITALS: Ht 182.9 cm; Wt 90.9 kg
[~2022-12-07 02:34] MED LIST changes: +PRED20TA PO
[2022-12-07] MEDS ORDERED: ipratropium/albuterol 3ml nebule NEB ONE (02:55)
[2022-12-07] MEDS ORDERED: ondansetron/PF 4mg/2ml inj IV ONE (03:20)
[2022-12-07] MEDS ORDERED: azithromycin/NS 500mg/250ml 250 ML IV ONE (03:25)
[2022-12-07] MEDS ORDERED: CefTRIAXone/D5W-Rocephin 1gm 50 ML IV ONE (03:25)
[2022-12-07 03:51] LABS: BASOPHILS # (AUTO) 0.1 X10'3 (0-0.2); BASOPHILS % (AUTO) 1.1 % (0-1); EOSINOPHILS # (AUTO) 0.1 X10'3 (0-0.9); EOSINOPHILS % (AUTO) 0.9 % (0-6); HEMATOCRIT 43.3 % (42.0-52.0); HEMOGLOBIN 13.9 g/dl (14.0-17.9); LYMPHOCYTES # (AUTO) 1.4 X10'3 (1.1-4.8); LYMPHOCYTES % (AUTO) 15.6 % (21-51); MEAN CORPUSCULAR HEMOGLOBIN 25.5 PG (27.0-31.0); MEAN CORPUSCULAR HGB CONC 32.2 g/dL (33.0-36.5); MEAN CORPUSCULAR VOLUME 79.3 FL (78-98); MEAN PLATELET VOLUME 8.3 FL (7.4-10.4); MONOCYTES # (AUTO) 0.2 X10'3 (0-0.9); MONOCYTES % (AUTO) 2.4 % (2-12); NEUTROPHILS # (AUTO) 7.2 X10'3 (1.8-7.7); PLATELET COUNT 320 X10'3 (140-440); RED BLOOD COUNT 5.46 X10'6 (4.70-6.10); RED CELL DISTRIBUTION WIDTH 25.2 % (11.5-14.5)
[2022-12-07 04:08] LABS: ANISOCYTOSIS 3+; MICROCYTOSIS 1+; PLATELET ESTIMATE NORMAL
[2022-12-07 04:10] LABS: ACANTHOCYTES FEW; BURR CELLS 1+; ELLIPTOCYTES FEW
[2022-12-07 04:19] LABS: ALANINE AMINOTRANSFERASE 30 U/L (12-78); ALBUMIN 3.8 G/DL (3.4-5.0); ALBUMIN/GLOBULIN RATIO 1.2 (1.1-1.5); ALKALINE PHOSPHATASE 87 IU/L (46-116); ANION GAP 11 (8-16); ASPARTATE AMINO TRANSFERASE 14 U/L (10-37); BILIRUBIN,TOTAL 0.4 MG/DL (0.1-1.0); BLOOD UREA NITROGEN 13 MG/DL (7-18); BUN/CREATININE RATIO 12.7 (10.0-20.0); CALCIUM 8.7 MG/DL (8.5-10.1); CHLORIDE 105 MMOL/L (99-107); CREATININE 1.02 MG/DL (0.60-1.10); GLUCOSE 81 MG/DL (70-104); POTASSIUM 3.4 MMOL/L (3.5-5.1); SODIUM 145 MMOL/L (135-145); TOTAL CARBON DIOXIDE 29.3 MMOL/L (24-32); eGFR 70 ML/MIN
[2022-12-07] MEDS ORDERED: magnesium hydroxide 30ml (MOM) UD suspension PO PRN (05:30)
[2022-12-07] MEDS ORDERED: acetaminophen 325mg tablet PO PRN (05:30)
[2022-12-07] MEDS ORDERED: mag hydrox/Alum hydrox/simeth 30ml oral suspension PO PRN (05:30)
[2022-12-07] MEDS ORDERED: morphine 2 MG/ML inj. syringe IV PRN ×2 (05:30)
[2022-12-07] MEDS ORDERED: ondansetron/PF 4mg/2ml inj IV PRN (05:30)
[2022-12-07] MEDS: furosemide 20 MG/2 ML vial IV SCH ×3 (06:04→19:50)
[2022-12-07] MEDS: docusate sod 100mg capsule PO SCH ×2 (08:00→20:03)
--- NOTE | 2022-12-07 09:35 | NUR ---
pt getting us at this time. once complete rn will admin meds and ck bg.
--- NOTE | 2022-12-07 09:35 | NUR ---
rn attempted to call report and rn was in a pt room and will call back.
--- NOTE | 2022-12-07 09:37 | NUR ---
rn ck bg d/t pt reported poor appetite for a few days. accuck is 96
[2022-12-07] MEDS: enoxaparin 40mg/0.4ml syringe SUBCUT SCH (09:41)
--- NOTE | 2022-12-07 10:03 | NUR ---
RN PAGED RT TO TAKE BIPAP TO PT RM [phone]
[2022-12-07 10:10] VITALS: BP 96/61
--- NOTE | 2022-12-07 10:10 | NUR ---
Received report from Homa RN, patient assisted to floor via w/c by staff. Patient AOx4, able to make needs known. Oxygen noted 2L, patient denies SOB. No s/sx of distress noted at this time. Patient independent into bed with cane. Orientation to surroundings and call light provided along with education for utilization. Bed locked and low, call light/fluids within reach. Assessment performed and VS obtained.
[2022-12-07] MEDS: nicotine 14mg patch - 24hr TD SCH (12:36)
[2022-12-07] MEDS ORDERED: PANT20TA18 PO (13:31)
--- NOTE | 2022-12-07 13:39 | NUR ---
PAGER ID: [phone] MESSAGE: [id number] Timothy Tubbs: Med rec completed for you to view :) Ty
[2022-12-07 15:00] VITALS: BP 98/79
--- NOTE | 2022-12-07 17:32 | NUR ---
UNIFORM PATROL POLICE OFFICER documentation: I have reviewed and agree with all interventions, assessments performed and documented by JOSHUA COOLEY LVN.
[2022-12-07 18:00] VITALS: BP 121/65
[2022-12-07] MEDS: acetaminophen 325mg tablet PO PRN (18:05)
--- NOTE | 2022-12-07 18:31 | NUR ---
Problems reprioritized. Patient report given, questions answered & plan of care reviewed with Soco HERNANDEZ.
[2022-12-07] MEDS: albuterol 2.5 MG/3 ML nebule NEB SCH (19:43)
[2022-12-07] MEDS: HYDROcodone/acetaminophen 5mg/325mg tablet PO PRN (20:04)
[2022-12-07 22:00] VITALS: BP 115/67
[2022-12-08] MEDS: albuterol 2.5 MG/3 ML nebule NEB SCH ×4 (01:33→19:41)
[2022-12-08 02:00] VITALS: BP 109/62
[2022-12-08] MEDS: HYDROcodone/acetaminophen 5mg/325mg tablet PO PRN (02:17)
--- NOTE | 2022-12-08 02:31 | NUR ---
BLOOD BANK WORKER documentation: I have reviewed and agree with all interventions, assessments performed and documented by Soco DON.
[2022-12-08 06:00] VITALS: BP 127/69
[2022-12-08 06:33] LABS: ALBUMIN 2.9 G/DL (3.4-5.0); ANION GAP 8 (8-16); BLOOD UREA NITROGEN 18 MG/DL (7-18); BUN/CREATININE RATIO 19.1 (10.0-20.0); CALCIUM 8.7 MG/DL (8.5-10.1); CHLORIDE 101 MMOL/L (99-107); CREATININE 0.94 MG/DL (0.60-1.10); GLUCOSE 92 MG/DL (70-104); POTASSIUM 3.5 MMOL/L (3.5-5.1); SODIUM 138 MMOL/L (135-145); TOTAL CARBON DIOXIDE 29.4 MMOL/L (24-32); eGFR 77 ML/MIN
[2022-12-08 06:36] LABS: BASOPHILS % (AUTO) 0.1 % (0-1); EOSINOPHILS % (AUTO) 0.2 % (0-6); HEMATOCRIT 36.4 % (42.0-52.0); HEMOGLOBIN 11.8 g/dl (14.0-17.9); LYMPHOCYTES # (AUTO) 0.8 X10'3 (1.1-4.8); LYMPHOCYTES % (AUTO) 5.1 % (21-51); MEAN CORPUSCULAR HEMOGLOBIN 26.3 PG (27.0-31.0); MEAN CORPUSCULAR HGB CONC 32.3 g/dL (33.0-36.5); MEAN CORPUSCULAR VOLUME 81.5 FL (78-98); MEAN PLATELET VOLUME 8.4 FL (7.4-10.4); MONOCYTES # (AUTO) 0.6 X10'3 (0-0.9); MONOCYTES % (AUTO) 3.9 % (2-12); NEUTROPHILS # (AUTO) 14.5 X10'3 (1.8-7.7); NEUTROPHILS % (AUTO) 90.7 % (42-75); PLATELET COUNT 271 X10'3 (140-440); RED BLOOD COUNT 4.47 X10'6 (4.70-6.10); RED CELL DISTRIBUTION WIDTH 24.3 % (11.5-14.5)
[2022-12-08] MEDS: docusate sod 100mg capsule PO SCH ×2 (08:00→20:59)
[2022-12-08] MEDS: enoxaparin 40mg/0.4ml syringe SUBCUT SCH (08:14)
[2022-12-08] MEDS: nicotine 14mg patch - 24hr TD SCH (08:20)
[2022-12-08] MEDS: CefTRIAXone 2gm/D5W 50ml BAG 50 ML IV SCH (08:36)
[2022-12-08] MEDS: furosemide 20 MG/2 ML vial IV SCH ×2 (08:36→21:22)
[2022-12-08 11:00] VITALS: BP 115/64
[2022-12-08] MEDS ORDERED: azithromycin/NS 500mg/250ml 250 ML IV ONE (14:25)
[2022-12-08] MEDS ORDERED: ASCO-134 PO (14:27)
[2022-12-08] MEDS ORDERED: IPRA4AER IH (14:27)
[2022-12-08] MEDS ORDERED: ATOR-2 PO (14:34)
[2022-12-08] MEDS ORDERED: CITA40TA17 PO (14:34)
[2022-12-08] MEDS ORDERED: FERR-39 PO (14:34)
[2022-12-08] MEDS ORDERED: CHOL20003 PO (14:34)
[2022-12-08] MEDS ORDERED: PANT-47 PO (14:38)
[2022-12-08] MEDS ORDERED: LORA10TA7 PO (14:38)
[2022-12-08] MEDS ORDERED: TRAZ-256 PO (14:41)
[2022-12-08 15:00] VITALS: BP 123/66
--- NOTE | 2022-12-08 15:00 | NUR ---
REGULATORY COMPLIANCE DIRECTOR documentation: I have reviewed and agree with all interventions, assessments performed and documented by ANDREW READ LVN.
[2022-12-08] MEDS: acetaminophen 325mg tablet PO PRN (16:28)
--- NOTE | 2022-12-08 16:30 | NUR ---
Pt attempting to get up of bed. Pt anxious and desiring to go home. Conservator called to discuss with patient his hospital visit. Patient verbalized understanding but due to confusion and forgetfullness, needs reinforcement.
--- NOTE | 2022-12-08 16:50 | NUR ---
Paged Page Sent PAGER ID: [phone] MESSAGE: [id number] Tubbs. Pt increasing in anxiety/agitation ASB restlessness, irritability. Pt somewhat responsive to therapeutic communication and reorientation. Pt may benefit from a prn anxiety med. Uriel Suero LVN. (208 character message out of a maximum of 240)
[2022-12-08] MEDS ORDERED: LORazepam 2 mg/ml vial IV PRN (16:55)
[2022-12-08] MEDS ORDERED: traZODone 50mg tablet PO PRN (16:55)
[2022-12-08] MEDS ORDERED: LORazepam 0.5 MG tablet PO PRN (16:55)
[2022-12-08 18:00] VITALS: BP 117/70
--- NOTE | 2022-12-08 18:27 | NUR ---
Problems reprioritized. Patient report given, questions answered & plan of care reviewed with Katie DON.
[2022-12-08] MEDS: busPIRone 5mg tablet PO SCH (20:58)
[2022-12-08] MEDS ORDERED: quetiapine 100mg tablet PO SCH (21:00)
[2022-12-08] MEDS ORDERED: atorvastatin 20mg tablet PO SCH (21:00)
[2022-12-08] MEDS: metoprolol tartrate 12.5mg (1/2 tablet) PO SCH (21:00)
--- NOTE | 2022-12-09 02:07 | NUR ---
Agree with Soco DON physical assessment except where I documented my findings.
[2022-12-09] MEDS: albuterol 2.5 MG/3 ML nebule NEB SCH ×3 (02:32→14:00)
[2022-12-09 06:00] VITALS: BP 134/58
[2022-12-09 06:17] LABS: ALBUMIN 2.7 G/DL (3.4-5.0); ANION GAP 7 (8-16); BLOOD UREA NITROGEN 17 MG/DL (7-18); BUN/CREATININE RATIO 21.3 (10.0-20.0); CALCIUM 8.3 MG/DL (8.5-10.1); CHLORIDE 105 MMOL/L (99-107); GLUCOSE 93 MG/DL (70-104); POTASSIUM 3.5 MMOL/L (3.5-5.1); SODIUM 140 MMOL/L (135-145); TOTAL CARBON DIOXIDE 28.3 MMOL/L (24-32); eGFR > 90 ML/MIN
[2022-12-09 06:23] LABS: BASOPHILS % (AUTO) 0.1 % (0-1); EOSINOPHILS # (AUTO) 0.1 X10'3 (0-0.9); EOSINOPHILS % (AUTO) 1.2 % (0-6); LYMPHOCYTES # (AUTO) 1.1 X10'3 (1.1-4.8); LYMPHOCYTES % (AUTO) 13.5 % (21-51); MEAN CORPUSCULAR HEMOGLOBIN 26.5 PG (27.0-31.0); MEAN CORPUSCULAR HGB CONC 32.3 g/dL (33.0-36.5); MEAN CORPUSCULAR VOLUME 82.1 FL (78-98); MEAN PLATELET VOLUME 8.3 FL (7.4-10.4); MONOCYTES # (AUTO) 0.5 X10'3 (0-0.9); MONOCYTES % (AUTO) 6.1 % (2-12); NEUTROPHILS # (AUTO) 6.2 X10'3 (1.8-7.7); NEUTROPHILS % (AUTO) 79.1 % (42-75); PLATELET COUNT 232 X10'3 (140-440); RED BLOOD COUNT 4.14 X10'6 (4.70-6.10); RED CELL DISTRIBUTION WIDTH 23.7 % (11.5-14.5); WHITE BLOOD COUNT 7.9 X10'3 (4.5-11.0)
--- NOTE | 2022-12-09 06:30 | NUR ---
Patient in room PCU 3026. I have received report from Katie DON and had the opportunity to ask questions and assume patient care.
[2022-12-09] MEDS ORDERED: azithromycin/NS 500mg/250ml 250 ML IV SCH (08:00)
[2022-12-09] MEDS: docusate sod 100mg capsule PO SCH (08:00)
[2022-12-09] MEDS ORDERED: aspirin 81mg, enteric-coated 1 TAB TABLET.DR PO SCH (08:00)
[2022-12-09] MEDS ORDERED: citalopram 20mg tablet PO SCH (08:00)
[2022-12-09] MEDS: CefTRIAXone 2gm/D5W 50ml BAG 50 ML IV SCH (08:44)
[2022-12-09] MEDS: furosemide 20 MG/2 ML vial IV SCH (08:44)
[2022-12-09] MEDS: nicotine 14mg patch - 24hr TD SCH (08:48)
[2022-12-09] MEDS: busPIRone 5mg tablet PO SCH (08:48)
[2022-12-09] MEDS: metoprolol tartrate 12.5mg (1/2 tablet) PO SCH (08:48)
[2022-12-09] MEDS: enoxaparin 40mg/0.4ml syringe SUBCUT SCH (08:49)
[2022-12-09 11:00] VITALS: BP 113/56
[2022-12-09 11:11] LABS: ANISOCYTOSIS 3+; ELLIPTOCYTES 1+; PLATELET ESTIMATE NORMAL
[2022-12-09 11:12] LABS: POLYCHROMASIA FEW; SCHISTOCYTES FEW
[2022-12-09 11:13] LABS: BURR CELLS 1+
[2022-12-09 11:14] LABS: ACANTHOCYTES FEW; TEAR DROP CELLS FEW
--- NOTE | 2022-12-09 11:32 | NUR ---
SPO2 97% on room air. PRN O2 discontinued.
--- NOTE | 2022-12-09 12:50 | NUR ---
Paged. Page Sent PAGER ID: [phone] MESSAGE: [phone]- Tubbs. HARRIS answered phone. She is in agreement to send patient back to [facility] via [facility]. Local [facility] on [address]. Uriel Suero LVN
[2022-12-09] MEDS ORDERED: AZIT-83 PO (14:14)
[2022-12-09] MEDS ORDERED: NICO-631 TD (14:14)
[2022-12-09] MEDS ORDERED: CEFD300C3 PO (14:14)
--- NOTE | 2022-12-09 14:19 | NUR ---
pt. refused 1400 svn stating that he is leaving soon and is doing fine. No SOB observed
--- NOTE | 2022-12-09 15:47 | NUR ---
All written instructions provided to patient. All verbal instructions provided to Conservator Mago Jose M. She verbalized understanding. Charge nurse acknowledged verbalization of instructions via telephone. PIV discontinued. All medications will be picked up at [facility] on [address] [facility] [address]. Telebox discontinued. Pt gathered his belongings including pants, belt, wallet, watch, and silver case. Pt took his brown loafers as well. [facility] picked up patient and will be taking pt to [facility]. Pt instructed to give paperwork to Conservator, he verbalized understanding. Addendum: 12/09/22 at 1553 by Uriel Suero LVN Amended: Links added.
== END 2022-12-09 15:20 | disposition home health service (06) | DRG 189 ==
LOC: ER 02:35 → ED HOLD 05:34 → EDBEDREQ 05:48 → PCU 3S 10:09
PROVIDERS: ADMIT Internal Medicine; ATTEND Internal Medicine
DX: J96.01 Acute respiratory failure with hypoxia (principal); J18.9 Pneumonia, unspecified organism; J81.0 Acute pulmonary edema; J44.0 Chronic obstructive pulmonary disease with (acute) lower respiratory infection; J44.1 Chronic obstructive pulmonary disease with (acute) exacerbation; E87.6 Hypokalemia; Z20.822 Contact with and (suspected) exposure to COVID-19; F41.1 Generalized anxiety disorder; G47.00 Insomnia, unspecified; E78.00 Pure hypercholesterolemia, unspecified; F17.210 Nicotine dependence, cigarettes, uncomplicated; I10 Essential (primary) hypertension; F32.A Depression, unspecified; K21.9 Gastro-esophageal reflux disease without esophagitis; Z79.899 Other long term (current) drug therapy; Z71.6 Tobacco abuse counseling
CPT/HCPCS: 36415; 71045; 80048; 80053; 82948; 83605; 83880; 84145; 85008; 85025; 87040; 87081; 87811; 93005; 93306; 94640; 94660; 94760; 99285; A6250; G0378; J0456; J0696; J1650; J1940; J2060; J2405; J7040

== ENCOUNTER 2023-01-19 16:01 | Emergency (ER) | payer OTHER, MEDICARE ==
[~2023-01-19] VITALS: Ht 182.9 cm; Wt 80.0 kg
[~2023-01-19 16:01] MED LIST changes: +ASCO-134 PO; +ATOR-2 PO; -ATOR40TA72 PO; -CALC500T63 PO; +CHOL20003 PO; +CITA40TA17 PO; -CLOP75TA34 PO; +FERR-39 PO; +LORA10TA7 PO; +NICO-631 TD; -NICO-687 TD; -PRED20TA PO
[2023-01-19 16:25] VITALS: BP 159/91
[2023-01-19] MEDS ORDERED: dexamethasone sod phosphate 10mg/ml inj PO STA (16:35)
[2023-01-19] MEDS ORDERED: cephalexin 250mg capsule PO ONE (16:35)
[2023-01-19] MEDS ORDERED: CEPH250T PO ×2 (16:42)
[2023-01-20] MEDS ORDERED: CEPH250T PO (16:10)
== END 2023-01-19 16:54 | disposition home or self-care (01) ==
LOC: ER 16:02
DX: S51.851A Open bite of right forearm, initial encounter (principal); I10 Essential (primary) hypertension; E78.00 Pure hypercholesterolemia, unspecified; J44.9 Chronic obstructive pulmonary disease, unspecified; K21.9 Gastro-esophageal reflux disease without esophagitis; W57.XXXA Bitten or stung by nonvenomous insect and other nonvenomous arthropods, initial encounter; Y93.89 Activity, other specified; Y92.89 Other specified places as the place of occurrence of the external cause; Y99.8 Other external cause status
CPT/HCPCS: 99283; J1100

== ENCOUNTER 2023-02-18 17:29 | Emergency (ER) | payer OTHER ==
[~2023-02-18] VITALS: Ht 182.9 cm; Wt 81.8 kg
[~2023-02-18 17:29] MED LIST changes: +CEPH250T PO
[2023-02-18 18:45] VITALS: BP 146/76
[2023-02-18 19:56] LABS: BASOPHILS % (AUTO) 0.2 % (0-1); EOSINOPHILS # (AUTO) 0.1 X10'3 (0-0.9); EOSINOPHILS % (AUTO) 0.6 % (0-6); HEMATOCRIT 41.3 % (42.0-52.0); LYMPHOCYTES # (AUTO) 1.3 X10'3 (1.1-4.8); LYMPHOCYTES % (AUTO) 9.7 % (21-51); MEAN CORPUSCULAR HEMOGLOBIN 26.4 PG (27.0-31.0); MEAN CORPUSCULAR HGB CONC 31.6 g/dL (33.0-36.5); MEAN CORPUSCULAR VOLUME 83.6 FL (78-98); MEAN PLATELET VOLUME 8.1 FL (7.4-10.4); MONOCYTES # (AUTO) 0.8 X10'3 (0-0.9); MONOCYTES % (AUTO) 5.8 % (2-12); NEUTROPHILS # (AUTO) 11.5 X10'3 (1.8-7.7); NEUTROPHILS % (AUTO) 83.7 % (42-75); PLATELET COUNT 222 X10'3 (140-440); RED BLOOD COUNT 4.93 X10'6 (4.70-6.10); RED CELL DISTRIBUTION WIDTH 18.1 % (11.5-14.5); WHITE BLOOD COUNT 13.7 X10'3 (4.5-11.0)
[2023-02-18 20:21] LABS: ALANINE AMINOTRANSFERASE 26 U/L (12-78); ALBUMIN 3.3 G/DL (3.4-5.0); ALKALINE PHOSPHATASE 79 IU/L (46-116); ANION GAP 10 (8-16); ASPARTATE AMINO TRANSFERASE 13 U/L (10-37); BILIRUBIN,TOTAL 0.7 MG/DL (0.1-1.0); BLOOD UREA NITROGEN 16 MG/DL (7-18); BUN/CREATININE RATIO 15.8 (10.0-20.0); CALCIUM 8.8 MG/DL (8.5-10.1); CHLORIDE 101 MMOL/L (99-107); CREATININE 1.01 MG/DL (0.60-1.10); GLUCOSE 89 MG/DL (70-104); POTASSIUM 4.1 MMOL/L (3.5-5.1); SODIUM 137 MMOL/L (135-145); TOTAL CARBON DIOXIDE 26.5 MMOL/L (24-32); TOTAL PROTEIN 6.5 G/DL (6.4-8.2); eGFR 71 ML/MIN
[2023-02-18] MEDS ORDERED: amox tr/potassium clavulanate 875/125mg TAB PO ONE (20:30)
[2023-02-18] MEDS ORDERED: AMOX-117 PO (20:38)
[2023-02-19 01:09] LABS: PLATELET ESTIMATE NORMAL; TOTAL CELLS COUNTED 100
[2023-02-19 01:10] LABS: ANISOCYTOSIS 2+; ELLIPTOCYTES 1+; SCHISTOCYTES FEW
[2023-02-19 01:11] LABS: ACANTHOCYTES FEW; BURR CELLS 1+
[2023-02-19 01:12] LABS: POIKILOCYTOSIS FEW
== END 2023-02-18 20:46 | disposition home or self-care (01) ==
LOC: ER 17:29
DX: D72.828 Other elevated white blood cell count (principal); J40 Bronchitis, not specified as acute or chronic; E78.00 Pure hypercholesterolemia, unspecified; I10 Essential (primary) hypertension; J44.9 Chronic obstructive pulmonary disease, unspecified; K21.9 Gastro-esophageal reflux disease without esophagitis; Z86.2 Personal history of diseases of the blood and blood-forming organs and certain disorders involving the immune mechanism; F32.A Depression, unspecified; Z79.899 Other long term (current) drug therapy; Z79.1 Long term (current) use of non-steroidal anti-inflammatories (NSAID)
CPT/HCPCS: 36415; 71045; 80053; 83880; 84484; 85007; 85025; 93005; 99285

== ENCOUNTER 2023-03-27 16:35 | Emergency (ER) | payer OTHER, MEDICARE ==
[~2023-03-27] VITALS: Ht 175.3 cm; Wt 81.8 kg
[2023-03-27 16:38] VITALS: TEMP 98.1
--- NOTE | 2023-03-27 16:41 | NUR ---
DEONDRE SY [phone]
[2023-03-27 17:21] VITALS: BP 149/70; PULSE 57; RESP 16; O2SAT 96
== END 2023-03-27 18:25 | disposition home or self-care (01) ==
LOC: ER 16:35
DX: M25.531 Pain in right wrist (principal); E78.00 Pure hypercholesterolemia, unspecified; I10 Essential (primary) hypertension; J44.9 Chronic obstructive pulmonary disease, unspecified; K21.9 Gastro-esophageal reflux disease without esophagitis; Z79.899 Other long term (current) drug therapy; Z79.82 Long term (current) use of aspirin; Z79.2 Long term (current) use of antibiotics
CPT/HCPCS: 29125; 73110; 99284

== ENCOUNTER 2024-04-12 15:21 | Emergency (ER) | payer OTHER, MEDICARE ==
[~2024-04-12] VITALS: Ht 182.9 cm; Wt 79.5 kg
[2024-04-12 16:06] LABS: BASOPHILS % (AUTO) 0.4 % (0-1); EOSINOPHILS # (AUTO) 0.1 X10'3 (0-0.9); HEMATOCRIT 43.7 % (42.0-52.0); HEMOGLOBIN 14.5 g/dl (14.0-17.9); LYMPHOCYTES # (AUTO) 0.7 X10'3 (1.1-4.8); LYMPHOCYTES % (AUTO) 13.8 % (21-51); MEAN CORPUSCULAR HEMOGLOBIN 29.3 PG (27.0-31.0); MEAN CORPUSCULAR HGB CONC 33.1 g/dL (33.0-36.5); MEAN CORPUSCULAR VOLUME 88.6 FL (78-98); MEAN PLATELET VOLUME 7.8 FL (7.4-10.4); MONOCYTES # (AUTO) 0.3 X10'3 (0-0.9); MONOCYTES % (AUTO) 6.4 % (2-12); NEUTROPHILS % (AUTO) 77.4 % (42-75); PLATELET COUNT 160 X10'3 (140-440); RED BLOOD COUNT 4.94 X10'6 (4.70-6.10); RED CELL DISTRIBUTION WIDTH 13.9 % (11.5-14.5); WHITE BLOOD COUNT 5.1 X10'3 (4.5-11.0)
[2024-04-12 16:23] LABS: ALBUMIN 3.7 G/DL (3.4-5.0); ANION GAP 9 (8-16); BLOOD UREA NITROGEN 13 MG/DL (7-18); BUN/CREATININE RATIO 16.7 (10.0-20.0); CALCIUM 8.9 MG/DL (8.5-10.1); CHLORIDE 104 MMOL/L (99-107); CREATININE 0.78 MG/DL (0.60-1.10); GLUCOSE 88 MG/DL (70-104); POTASSIUM 4.4 MMOL/L (3.5-5.1); SODIUM 140 MMOL/L (135-145); TOTAL CARBON DIOXIDE 27.4 MMOL/L (24-32); eCRCL 82 ML/MIN; eGFR > 90 ML/MIN
[2024-04-12 17:24] LABS: BILIRUBIN,URINE NEGATIVE (Neg); CLARITY,URINE CLEAR (Clear); COLOR,URINE YELLOW (Yellow); GLUCOSE, URINE NEGATIVE (Neg); KETONES,URINE NEGATIVE (Neg); LEUKOCYTE ESTERASE ,URINE NEGATIVE (Neg); NITRITES, URINE NEGATIVE (Neg); OCCULT BLOOD,URINE NEGATIVE (Neg); PROTEIN,URINE NEGATIVE (Neg); UROBILINOGEN,URINE 0.2 E.U/dL (0.2-1.0)
[2024-04-12 17:25] LABS: UA COLLECTION TYPE CLN CATCH MIDSTREAM
[2024-04-12 18:58] VITALS: BP 158/79; PULSE 62; TEMP 98.6; O2SAT 95
[2024-04-12 19:51] VITALS: RESP 14
== END 2024-04-12 20:48 | disposition home or self-care (01) ==
LOC: ER 15:21
DX: R53.1 Weakness (principal); F03.90 Unspecified dementia, unspecified severity, without behavioral disturbance, psychotic disturbance, mood disturbance, and anxiety; E78.00 Pure hypercholesterolemia, unspecified; I10 Essential (primary) hypertension; J44.9 Chronic obstructive pulmonary disease, unspecified; K21.9 Gastro-esophageal reflux disease without esophagitis; D64.9 Anemia, unspecified; F32.A Depression, unspecified; Z79.899 Other long term (current) drug therapy; Z79.82 Long term (current) use of aspirin; Z79.1 Long term (current) use of non-steroidal anti-inflammatories (NSAID); Z98.890 Other specified postprocedural states; Z20.822 Contact with and (suspected) exposure to COVID-19
CPT/HCPCS: 36415; 71045; 80048; 81003; 84484; 85025; 87811; 93005; 99285

== ENCOUNTER 2024-12-20 15:54 | Emergency (ER) | payer OTHER, MEDICARE ==
[~2024-12-20] VITALS: Ht 177.8 cm; Wt 82.0 kg
--- NOTE | 2024-12-20 16:08 | ELECTROCARDIOGRAPH REPORT ---
[facility] Test Date: 2024-12-20 Test Time: 16:06:40 Pat Name: ANIRUDH TOUSSAINT Department: EMERGENCY ROOM Room: Gender: M Signaler: : 1945 Requested By: KOURTNEY RIDDLE Order Number: [id number] Reading MD: Measurements Intervals [place] Rate: 54 P: 31 CO: 146 QRS: 27 QRSD: 119 T: 45 QT: 440 QTc: 417 Interpretive Statements Sinus bradycardia Nonspecific intraventricular conduction delay Minimal ST elevation, anterior leads Please click the below link to view image of tracing.
[2024-12-20 16:58] LABS: BASOPHILS % (AUTO) 0.6 % (0-1); EOSINOPHILS # (AUTO) 0.1 X10'3 (0-0.9); EOSINOPHILS % (AUTO) 2.5 % (0-6); LYMPHOCYTES # (AUTO) 1.4 X10'3 (1.1-4.8); LYMPHOCYTES % (AUTO) 23.3 % (21-51); MEAN CORPUSCULAR HEMOGLOBIN 29.8 PG (27.0-31.0); MEAN CORPUSCULAR HGB CONC 34.1 g/dL (33.0-36.5); MEAN CORPUSCULAR VOLUME 87.2 FL (78-98); MEAN PLATELET VOLUME 8.1 FL (7.4-10.4); MONOCYTES # (AUTO) 0.5 X10'3 (0-0.9); MONOCYTES % (AUTO) 8.5 % (2-12); NEUTROPHILS % (AUTO) 65.1 % (42-75); PLATELET COUNT 205 X10'3 (140-440); RED CELL DISTRIBUTION WIDTH 13.8 % (11.5-14.5); WHITE BLOOD COUNT 6.1 X10'3 (4.5-11.0)
[2024-12-20 17:04] LABS: ALANINE AMINOTRANSFERASE 24 U/L (12-78); ALBUMIN 3.4 G/DL (3.4-5.0); ALBUMIN/GLOBULIN RATIO 1.1 (1.1-1.5); ALKALINE PHOSPHATASE 90 IU/L (46-116); ANION GAP 6 (8-16); ASPARTATE AMINO TRANSFERASE 11 U/L (10-37); BILIRUBIN,TOTAL 0.4 MG/DL (0.1-1.0); BLOOD UREA NITROGEN 13 MG/DL (7-18); BUN/CREATININE RATIO 13.5 (10.0-20.0); CALCIUM 8.7 MG/DL (8.5-10.1); CHLORIDE 107 MMOL/L (99-107); CREATININE 0.96 MG/DL (0.60-1.10); GLUCOSE 93 MG/DL (70-104); LIPASE 33 U/L (16-77); POTASSIUM 3.9 MMOL/L (3.5-5.1); SODIUM 141 MMOL/L (135-145); TOTAL CARBON DIOXIDE 28.5 MMOL/L (24-32); TOTAL PROTEIN 6.4 G/DL (6.4-8.2); eCRCL 62 ML/MIN; eGFR 75 ML/MIN
--- NOTE | 2024-12-20 17:07 | Physician Documentation ---
History of Present Illness ~ Chief Complaint: Weakness Stated Complaint: WEAKNESS Time Seen by MD: 16:26 Primary Medical Doctor: DARINEL Mode of Arrival: EMS Medication Reconciliation Allergies: Coded Allergies: No Known Allergies (Unverified , 04/12/24) Scheduled Ascorbic Acid (Ascorbic Acid), 1 TAB PO DAILY, (Reported) Aspirin (Aspirin EC), 1 TAB PO DAILY, (Reported) Atorvastatin Calcium (Atorvastatin Calcium), 1 TAB PO DAILY, (Reported) Buspirone HCl (Buspirone HCl), 1 TAB PO BID, (Reported) Cephalexin*Monohydrate* (Keflex*), 2 CAP PO BID Cholecalciferol (Vitamin D3) (Vitamin D3), 2 TAB PO DAILY, (Reported) Citalopram Hydrobromide (Citalopram HBr), 20 MG PO DAILY, (Reported) Cyanocobalamin* (Vitamin B-12*), 1 TAB PO DAILY, (Reported) Docusate Sodium (Colace), 1 CAP PO Q12H Ferrous Sulfate (Ferrous Sulfate), 1 TAB PO BID, (Reported) Loratadine (Loratadine), 1 TAB PO DAILY, (Reported) Metoprolol Tartrate (Metoprolol Tartrate), 0.5 TAB PO BID, (Reported) Nicotine 14 MG Patch* (Habitrol 14 MG Patch*), 1 PATCH TD DAILY Pantoprazole Sodium (PROTONIX tablet), 40 MG PO BID, (Reported) Quetiapine Fumarate (Quetiapine Fumarate), 1 TAB PO HS, (Reported) Scheduled PRN Ipratropium/Albuterol Sulfate (Combivent Respimat Inhal [place] [facility]), 1 PUFFS IH QID PRN for SOB or wheezing, (Reported) Trazodone HCl (Trazodone HCl), 1 TAB PO HS PRN for sedation, (Reported) Past Medical History Past Medical History: Dementia, Epistaxis, High Cholesterol, Hypertension, COPD, GERD, Anemia, *PSYCH*, Depression Past Surgical History: orthopedic surgeries Patient History: Patient reports no known family medical history. Alcohol Use: Rarely Drug Use: none Lives with: Other Lives In: Assisted Care Occupation: retired Physical Exam Vital Signs: Temperature: 98.1, Source: Oral, Heart Rate: 54, Respiratory Rate: 16, BP: 148/78, Pulse Oximetry: 98, Weight: 82.000 Oxygen Flow Rate: 0 Progress Results/Orders Results/Orders Orders - KOURTNEY RIDDLE MD Urinalysis, Cult If Indicated (12/20/24 16:03) Completed Orders - KOURTNEY RIDDLE MD Electrocardiogram (12/20/24 16:03) Cbc/Diff (12/20/24 16:03) BMP (12/20/24 16:03) Lipase (12/20/24 16:03) CMP (12/20/24 16:03) Vital Signs 12/20/24 12/20/24 12/20/24 15:59 16:25 17:25 Temp 98.1 Pulse 54 50 Resp 14 16 14 B/P (MAP) 148/78 155/75 (101) Pulse Ox 98 99 O2 Flow Rate 0 Laboratory Tests Test 12/20/24 16:30 White Blood Count 6.1 Red Blood Count 4.70 Hemoglobin 14.0 Hematocrit 41.0 L Mean Corpuscular Volume 87.2 Mean Corpuscular Hemoglobin 29.8 Mean Corpuscular Hemoglobin Concent 34.1 Red Cell Distribution Width 13.8 Platelet Count 205 Mean Platelet Volume 8.1 Neutrophils (%) (Auto) 65.1 Lymphocytes (%) (Auto) 23.3 Monocytes (%) (Auto) 8.5 Eosinophils (%) (Auto) 2.5 Basophils (%) (Auto) 0.6 Neutrophils # (Auto) 4.0 Lymphocytes # (Auto) 1.4 Monocytes # (Auto) 0.5 Eosinophils # (Auto) 0.1 Basophils # (Auto) 0.0 CBC Comment Sodium Level 141 Potassium Level 3.9 Chloride Level 107 Carbon Dioxide Level 28.5 Anion Gap 6 L Blood Urea Nitrogen 13 Creatinine 0.96 Estimated GFR/1.73 m2 75 BUN/Creatinine Ratio 13.5 Glucose Level 93 Calcium Level 8.7 Total Bilirubin 0.4 Aspartate Amino Transf (AST/SGOT) 11 Alanine Aminotransferase (ALT/SGPT) 24 Alkaline Phosphatase 90 Total Protein 6.4 Albumin 3.4 Globulin 3.0 Albumin/Globulin Ratio 1.1 Lipase 33 Chemistry Comments EKG/XRAY/CT/US/VASC/MRI EKG : Additional Comment EKG independently interpreted by myself time 4:06 p.m. indication weakness sinus bradycardia rate 54 normal axis normal intervals no ST or T-wave abnormalities Departure Referrals: NO PRIMARY CARE PROVIDER (PCP) KOURTNEY RIDDLE MD December 20, 2024 17:07
[2024-12-20 18:35] LABS: BILIRUBIN,URINE NEGATIVE (Neg); CLARITY,URINE CLEAR (Clear); COLOR,URINE YELLOW (Yellow); GLUCOSE, URINE NEGATIVE (Neg); KETONES,URINE NEGATIVE (Neg); LEUKOCYTE ESTERASE ,URINE NEGATIVE (Neg); NITRITES, URINE NEGATIVE (Neg); OCCULT BLOOD,URINE NEGATIVE (Neg); PROTEIN,URINE NEGATIVE (Neg); UROBILINOGEN,URINE 0.2 E.U/dL (0.2-1.0)
[2024-12-20 18:37] LABS: UA COLLECTION TYPE VOIDED
--- NOTE | 2024-12-20 19:36 | Physician Documentation ---
History of Present Illness ~ Chief Complaint: Weakness Stated Complaint: WEAKNESS Time Seen by MD: 17:42 OK to notify your PCP?: Yes Primary Medical Doctor: DARINEL Mode of Arrival: EMS HPI 79 year old male BIB EMS after he had diarrhea at his assisted living facility and felt weak for several days. He has experienced several days of diarrhea but no falls or LOC reported. He denies urinary symptoms, fevers, chest pain, cough, shortness of breath. 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 Medication Reconciliation Allergies: Coded Allergies: No Known Allergies (Unverified , 04/12/24) Scheduled Ascorbic Acid (Ascorbic Acid), 1 TAB PO DAILY, (Reported) Aspirin (Aspirin EC), 1 TAB PO DAILY, (Reported) Atorvastatin Calcium (Atorvastatin Calcium), 1 TAB PO DAILY, (Reported) Buspirone HCl (Buspirone HCl), 1 TAB PO BID, (Reported) Cephalexin*Monohydrate* (Keflex*), 2 CAP PO BID Cholecalciferol (Vitamin D3) (Vitamin D3), 2 TAB PO DAILY, (Reported) Citalopram Hydrobromide (Citalopram HBr), 20 MG PO DAILY, (Reported) Cyanocobalamin* (Vitamin B-12*), 1 TAB PO DAILY, (Reported) Docusate Sodium (Colace), 1 CAP PO Q12H Ferrous Sulfate (Ferrous Sulfate), 1 TAB PO BID, (Reported) Loratadine (Loratadine), 1 TAB PO DAILY, (Reported) Metoprolol Tartrate (Metoprolol Tartrate), 0.5 TAB PO BID, (Reported) Nicotine 14 MG Patch* (Habitrol 14 MG Patch*), 1 PATCH TD DAILY Pantoprazole Sodium (PROTONIX tablet), 40 MG PO BID, (Reported) Quetiapine Fumarate (Quetiapine Fumarate), 1 TAB PO HS, (Reported) Scheduled PRN Ipratropium/Albuterol Sulfate (Combivent Respimat Inhal [place]), 1 PUFFS IH QID PRN for SOB or wheezing, (Reported) Trazodone HCl (Trazodone HCl), 1 TAB PO HS PRN for sedation, (Reported) Past Medical History Past Medical History: Dementia, Epistaxis, High Cholesterol, Hypertension, COPD, GERD, Anemia, *PSYCH*, Depression Past Surgical History: orthopedic surgeries Patient History: Patient reports no known family medical history. Alcohol Use: Rarely Drug Use: none Lives with: Other Lives In: Assisted Care Occupation: retired Review of Systems All Other Systems at this time: Reviewed and Negative Physical Exam Vital Signs: RN Vital Signs have been reviewed: Yes, Temperature: 98.1, Source: Oral, Heart Rate: 50, Respiratory Rate: 16, BP: 155/75, Pulse Oximetry: 99, Weight: 82.000 Oxygen Flow Rate: 0 Physical Exam HEENT: PERRL, moist oral mucosa, EOMI; well healed trach scar Pulmonary: No respiratory distress, CTAB Cardiac: regular bradycardia, no murmur, rub or gallop GI: nondistended, soft, nontender, no guarding, no rebound MSK: no deformity Skin: w/d/i, no rash Neuro: alert, nonfocal Progress Results/Orders Results/Orders Vital Signs 12/20/24 12/20/24 12/20/24 12/20/24 15:59 16:25 17:25 18:42 Temp 98.1 Pulse 54 50 Resp 14 16 14 16 B/P (MAP) 148/78 155/75 (101) Pulse Ox 98 99 O2 Flow Rate 0 Laboratory Tests Test 12/20/24 16:30 12/20/24 18:29 White Blood Count 6.1 Red Blood Count 4.70 Hemoglobin 14.0 Hematocrit 41.0 L Mean Corpuscular Volume 87.2 Mean Corpuscular Hemoglobin 29.8 Mean Corpuscular Hemoglobin Concent 34.1 Red Cell Distribution Width 13.8 Platelet Count 205 Mean Platelet Volume 8.1 Neutrophils (%) (Auto) 65.1 Lymphocytes (%) (Auto) 23.3 Monocytes (%) (Auto) 8.5 Eosinophils (%) (Auto) 2.5 Basophils (%) (Auto) 0.6 Neutrophils # (Auto) 4.0 Lymphocytes # (Auto) 1.4 Monocytes # (Auto) 0.5 Eosinophils # (Auto) 0.1 Basophils # (Auto) 0.0 CBC Comment Sodium Level 141 Potassium Level 3.9 Chloride Level 107 Carbon Dioxide Level 28.5 Anion Gap 6 L Blood Urea Nitrogen 13 Creatinine 0.96 Estimated GFR/1.73 m2 75 BUN/Creatinine Ratio 13.5 Glucose Level 93 Calcium Level 8.7 Total Bilirubin 0.4 Aspartate Amino Transf (AST/SGOT) 11 Alanine Aminotransferase (ALT/SGPT) 24 Alkaline Phosphatase 90 Total Protein 6.4 Albumin 3.4 Globulin 3.0 Albumin/Globulin Ratio 1.1 Lipase 33 Chemistry Comments Urine Specimen Description Voided Urine Color Yellow Urine Clarity Clear Urine pH 6.0 Urine Specific [place] 1.010 Urine Protein Negative Urine Glucose (UA) Negative Urine Ketones Negative Urine Occult Blood Negative Urine Nitrite Negative Urine Bilirubin Negative Urine Urobilinogen 0.2 Urine Leukocyte Esterase Negative Urine Culture Indicated Not ind Volume Urine Centrifuged 10 ml Urine Comment Medical Decision Making Findings 79 year old male with weakness and diarrhea. Lab studies were unremarkable. Counseled, road tested, felt safe for discharged but with a walker. Differential Dx:Considerations: Include: anemia, dehydration, electrolyte imbalance, encephalopathy, hypoglycemia, hypovolemia, TIA, vertigo central, vertigo peripheral Departure Disposition: 01 HOME / SELF CARE / HOMELESS Impression: Primary Impression: Diarrhea Condition: Stable Discharge Instructions: Weakness Referrals: NO PRIMARY CARE PROVIDER (PCP) Education Educated: Patient Educated regarding: diagnosis, treatment, prognosis, need for follow up Signature Scribe Signature: . Attestation: . NAOMI VASQUEZ MD December 20, 2024 19:36
[2024-12-20 19:50] VITALS: BP 174/68; PULSE 50; RESP 16; TEMP 98.1; O2SAT 99
== END 2024-12-20 19:55 | disposition home or self-care (01) ==
LOC: ER 15:55
DX: R19.7 Diarrhea, unspecified (principal); E78.00 Pure hypercholesterolemia, unspecified; F03.90 Unspecified dementia, unspecified severity, without behavioral disturbance, psychotic disturbance, mood disturbance, and anxiety; I10 Essential (primary) hypertension; J44.9 Chronic obstructive pulmonary disease, unspecified
CPT/HCPCS: 36415; 80053; 81003; 83690; 85025; 93005; 99284

== ENCOUNTER 2025-02-09 13:40 | Inpatient (IN) | payer OTHER, MEDICARE ==
[~2025-02-09] VITALS: Ht 180.3 cm; Wt 83.0 kg
[2025-02-09] VITALS (7 sets, daily range): BP systolic 116–147; BP diastolic 60–103; PULSE 64–79; RESP 16–21; TEMP 97.7–97.9; O2SAT 93–97
--- NOTE | 2025-02-09 14:00 | ELECTROCARDIOGRAPH REPORT ---
[facility] Test Date: 2025-02-09 Test Time: 13:50:55 Pat Name: ANIRUDH TOUSSAINT Department: EMERGENCY ROOM [id number] Room: Gender: M Monument Carver: : 1945 Requested By: JENNI HUNTER Order Number: [id number] Reading MD: Measurements Intervals [place] Rate: 72 P: 36 GA: 147 QRS: 6 QRSD: 114 T: 44 QT: 385 QTc: 422 Interpretive Statements Sinus rhythm Borderline intraventricular conduction delay RSR' in V1 or V2, right VCD or RVH Minimal ST elevation, anterior leads Please click the below link to view image of tracing.
[2025-02-09 14:35] LABS: MEAN PLATELET VOLUME 8.2 FL (7.4-10.4); RED CELL DISTRIBUTION WIDTH 13.5 % (11.5-14.5)
--- NOTE | 2025-02-09 14:49 | RADIOLOGY REPORT ---
CHEST RADIOGRAPH Indication: CP Technique: Single frontal view of the chest was obtained Comparison: DI CHEST,SINGLE VIEW on DOS: 04/12/24, DI CHEST,SINGLE VIEW on DOS: 11/15/23, CHEST,SINGLE V IEW on DOS: 02/18/23 FINDINGS: Lines and Tubes: None Lungs: No focal consolidation. Pleura: No effusion. No pneumothorax. Cardiomediastinal contours: Heart size is within normal limits for Mild atherosclerotic calcification and uncoiling of the aorta. Bones: No acute osseous abnormality. Old fracture deformity of the right humeral head. IMPRESSION: No acute cardiopulmonary disease.
[2025-02-09 14:57] LABS: CREATININE 1.00 MG/DL (0.60-1.10); PRO BRAIN NATRIURETIC PEPTIDE < 30 PG/ML (0-450); TOTAL CARBON DIOXIDE 27.6 MMOL/L (24-32); eCRCL 62 ML/MIN; eGFR 72 ML/MIN
--- NOTE | 2025-02-09 16:09 | Physician Documentation ---
History of Present Illness General Chief Complaint: Chest Pain Stated Complaint: CP Time Seen by MD: 15:49 Primary Medical Doctor: DARINEL Mode of Arrival: EMS History of Present Illness Initial Comments The patient is an 79-year-old man who has a history of COPD (50+ years smoker) who for the past two weeks has been having chest pain with deep breathing and shortness of breath. He reports that he has an inhaler but it is run out. Medication Reconciliation Allergies: Coded Allergies: No Known Allergies (Unverified , 02/09/25) Scheduled Ascorbic Acid (Ascorbic Acid), 1 TAB PO DAILY, (Reported) Aspirin (Aspirin EC), 1 TAB PO DAILY, (Reported) Atorvastatin Calcium (Atorvastatin Calcium), 1 TAB PO DAILY, (Reported) Buspirone HCl (Buspirone HCl), 1 TAB PO BID, (Reported) Cephalexin*Monohydrate* (Keflex*), 2 CAP PO BID Cholecalciferol (Vitamin D3) (Vitamin D3), 2 TAB PO DAILY, (Reported) Citalopram Hydrobromide (Citalopram HBr), 20 MG PO DAILY, (Reported) Cyanocobalamin* (Vitamin B-12*), 1 TAB PO DAILY, (Reported) Docusate Sodium (Colace), 1 CAP PO Q12H Ferrous Sulfate (Ferrous Sulfate), 1 TAB PO BID, (Reported) Loratadine (Loratadine), 1 TAB PO DAILY, (Reported) Metoprolol Tartrate (Metoprolol Tartrate), 0.5 TAB PO BID, (Reported) Nicotine 14 MG Patch* (Habitrol 14 MG Patch*), 1 PATCH TD DAILY Pantoprazole Sodium (PROTONIX tablet), 40 MG PO BID, (Reported) Quetiapine Fumarate (Quetiapine Fumarate), 1 TAB PO HS, (Reported) Scheduled PRN Ipratropium/Albuterol Sulfate (Combivent Respimat Inhal [place]), 1 PUFFS IH QID PRN for SOB or wheezing, (Reported) Trazodone HCl (Trazodone HCl), 1 TAB PO HS PRN for sedation, (Reported) Past Medical History Past Medical History: Dementia, Epistaxis, High Cholesterol, Hypertension, COPD, GERD, Anemia, *PSYCH*, Depression Past Surgical History: orthopedic surgeries Smoking: Cigarettes Alcohol Use: Rarely Drug Use: none Lives with: Other Lives In: Assisted Care Occupation: retired Review of Systems ROS Constitutional: Denies chills, fatigue, fever, weight gain or weight loss. HEENT: Denies hearing loss, sinus pressure or visual changes. Respiratory: Shortness of breath, right-sided chest pain with deep breathing and wheezing. Cardiovascular: Denies chest pain, pain while walking (claudication), edema or palpitations. Gastrointestinal: Denies abdominal pain, blood in stool, constipation, diarrhea, heartburn, loss of appetite, nausea or vomiting. Genitourinary: Denies painful urination (dysuria), excessive amount of urine (polyuria) or urinary frequency. Metabolic/Endocrine: Denies cold intolerance, heat intolerance, excessive thirst (polydipsia) or excessive hunger (polyphagia). Neurological: Denies dizziness, extremity numbness, extremity weakness, headaches, seizures or tremors. Psychiatric: Denies anxiety or depression. Integumentary: Denies breast discharge, breast lump, hives, mole change(s), rash or skin lesion. Musculoskeletal: Denies back pain, joint pain, joint swelling or neck pain. Hematologic: Denies easily bleeding, easily bruises, lymphedema or issues with blood clots. Immunologic: Denies food allergies or seasonal allergies. Physical Exam Physical Exam Vital Signs: Temperature: 98.0, Heart Rate: 70, Respiratory Rate: 16, BP: 118/67, Pulse Oximetry: 96, Weight: 83.000 Oxygen Flow Rate: 0 Physical Exam Physical Exam Vitals and nursing note reviewed. Constitutional: General: Patient is awake, alert, oriented x 4 in no acute distress and well appearing. Speech is clear and lucid. Appearance: Normal appearance. Patient is not ill-appearing, toxic-appearing or diaphoretic. HENT: Head: Normocephalic and atraumatic. Mouth/Throat: Mouth: Mucous membranes are moist. Pharynx: Oropharynx is clear. Eyes: General: No scleral icterus. Extraocular Movements: Extraocular movements intact. Pupils: Pupils are equal, round, and reactive to light. Neck: Supple, no Kernig or Brudzinski sign. Cardiovascular: Rate and Rhythm: Normal rate and regular rhythm. Heart sounds: No murmur heard. Pulmonary: Effort: No respiratory distress. Breath sounds: Bilateral wheezing and rhonchi Abdominal: General: There is no distension. Palpations: There is no fluid wave, hepatomegaly or mass. Tenderness: There is no abdominal tenderness. There is no guarding. Musculoskeletal: General: No swelling or deformity. Skin: Coloration: Skin is not jaundiced. Findings: No erythema or rash. Neurological: Mental Status: Patient is alert. Progress Results/Orders Results/Orders Orders - JENNI HUNTER MD Chest,Single View (02/09/25 13:59) Monitor (02/09/25 13:59) Saline Lock (02/09/25 13:59) Oxygen (02/09/25 13:59) Hs Troponin I W Calculations (02/09/25 15:59) Hs Troponin I W Calculations (02/09/25 16:59) Ipratropium/Albuterol Nebule (Ipratrop/A (02/09/25 16:05) Azithromycin/Ns 500mg/250ml (Zithromax/N (02/09/25 16:05) Page Hospitalist (02/09/25 16:10) Culture Blood (02/09/25 16:11) Lacticsepsis (02/09/25 16:11) Completed Orders - JENNI HUNTER MD Chest,Single View (02/09/25 13:59) Cbc/Diff (02/09/25 13:59) BMP (02/09/25 13:59) PBNP (02/09/25 13:59) Electrocardiogram (02/09/25 13:59) Hs Troponin I W Calculations (02/09/25 13:59) Methylprednisolone Sod Succ (Solumedrol (02/09/25 16:05) Medications Received in ER Medications (Trade) Dose Ordered Sig/Cory Route PRN Reason Start Time Stop Time Status Last Admin Dose Admin (ipratrop/ albuterol 0.5-3(2.5) MG/3ml nebule) 3 ml Q4HRT NEB 02/09/25 16:05 02/09/25 16:18 3 ML (SoluMEDROL 125mg inj) 80 mg ONCE ONCE IV 02/09/25 16:05 02/09/25 16:06 DC 02/09/25 16:15 80 MG Azithromycin 250 ml @ 250 mls/hr ONCE ONCE IV 02/09/25 16:05 02/09/25 17:04 02/09/25 16:15 250 MLS/HR Vital Signs 02/09/25 02/09/25 02/09/25 02/09/25 13:51 14:23 14:28 16:09 Temp 98.0 Pulse 59 70 58 Resp 13 19 16 12 B/P (MAP) 121/73 118/67 (84) 109/67 (81) Pulse Ox 99 96 96 O2 Flow Rate 0 0 0 Laboratory Tests Test 02/09/25 14:24 White Blood Count 8.8 Red Blood Count 4.88 Hemoglobin 14.4 Hematocrit 42.6 Mean Corpuscular Volume 87.2 Mean Corpuscular Hemoglobin 29.4 Mean Corpuscular Hemoglobin Concent 33.7 Red Cell Distribution Width 13.5 Platelet Count 194 Mean Platelet Volume 8.2 Neutrophils (%) (Auto) 80.9 H Lymphocytes (%) (Auto) 10.5 L Monocytes (%) (Auto) 7.1 Eosinophils (%) (Auto) 1.1 Basophils (%) (Auto) 0.4 Neutrophils # (Auto) 7.1 Lymphocytes # (Auto) 0.9 L Monocytes # (Auto) 0.6 Eosinophils # (Auto) 0.1 Basophils # (Auto) 0.0 CBC Comment Sodium Level 139 Potassium Level 4.0 Chloride Level 104 Carbon Dioxide Level 27.6 Anion Gap 7 L Blood Urea Nitrogen 17 Creatinine 1.00 Estimated GFR/1.73 m2 72 BUN/Creatinine Ratio 17.0 Glucose Level 116 H Calcium Level 8.4 L Troponin I High Sensitivity 7 Pro-B-Type Natriuretic Peptide < 30 Albumin 3.3 L Chemistry Comments Medical Decision Making Findings This 79-year-old man with a history of COPD presents with two weeks of shortness of breath, right-sided chest pain with deep breathing and wheezing. He is out of his inhaler. I have started the patient on DuoNeb, Solu-Medrol and azithromycin. He will require admission. Departure Disposition: ADMITTED INPATIENT Admitted to Inpatient Unit: to hospitalist Impression: Primary Impression: Acute exacerbation of COPD with asthma Condition: Stable Referrals: NO PRIMARY CARE PROVIDER (PCP) Signature Scribe Signature: . Attestation: . JENNI HUNTER MD Feb 09, 2025 16:09
[2025-02-09] MEDS: azithromycin/NS 500mg/250ml 250 ML IV ONE (16:15)
[2025-02-09] MEDS: ipratropium/albuterol 3ml nebule NEB SCH ×2 (16:18→20:00)
[2025-02-09] MEDS ORDERED: ondansetron/PF 4mg/2ml inj IV PRN (18:00)
[2025-02-09] MEDS ORDERED: magnesium Cl slow-release 64mg tablet PO PRN (18:00)
[2025-02-09] MEDS ORDERED: potassium Cl 20 mEq SR tablet PO PRN ×2 (18:00)
[2025-02-09] MEDS ORDERED: magnesium hydroxide 30ml (MOM) UD suspension PO PRN (18:00)
[2025-02-09] MEDS ORDERED: magnesium sulf-water 2g/50mL 50 ML IV PRN (18:00)
[2025-02-09] MEDS ORDERED: mag hydrox/Alum hydrox/simeth 30ml oral suspension PO PRN (18:00)
[2025-02-09] MEDS ORDERED: potassium Cl 40MEQ/1/2NS 520ml 520 ML IV PRN (18:00)
[2025-02-09] MEDS ORDERED: magnesium sulf-water 4G/100mL 100 ML IV PRN (18:00)
[2025-02-09] MEDS ORDERED: ipratropium/albuterol 3ml nebule NEB PRN (18:25)
--- NOTE | 2025-02-09 19:19 | PROGRESS NOTE- Residence ---
Progress Note - Resident Providers to CC Resident Creating Document: A ~ Antibiotic Timeout Antibiotic Ordered?: Yes Subjective A 79-year-old male with a past medical history of chronic obstructive pulmonary disease (COPD) diagnosed 20 years ago who presented with shortness of breath that has been ongoing for two weeks. He states his dyspnea as not-constant, non- positional, and somewhat progressive over the past several days. Aggravates on physical exertion. He denies orthopnea or paroxysmal nocturnal dyspnea. Patient's other past history includes anxiety ,depression, coronary artery disease and hyperlipidemia. In addition to dyspnea, the patient reports lightheadedness that has been ongoing for about one week. The patient had a fall last Sunday and tripped over the stairs bruised his right knee and right elbow. Patient denies any symptoms of loss of consciousness ,confusion nausea, vomiting and head injury post the fall.He also reports a new onset of dry cough that began 2 weeks ago, with no associated sputum production. He denies fevers, chills, night sweats, chest pain, hemoptysis, or recent sick contacts. He is a smoker and continues to smoke about 15 cigarettes per week. Objective Vital Signs Date Time Temp Pulse Resp B/P (MAP) Pulse Ox O2 Delivery O2 Flow Rate FiO2 02/09/25 16:29 70 18 97 Room Air* 0 21 02/09/25 16:09 109/67 (81) 02/09/25 13:51 98.0 Awake , alert, and oriented x4, resting comfortably in the bed, mild distress HEENT: Atraumatic, normocephalic, EOMI, anicteric sclera ; pink conjunctiva Neck: Trachea midline. Supple, full range of motion, no JVD Cardiac: Regular rhythm, regular rate with no murmurs all over the precordium. Respiratory: Equal breath sounds bilaterally, diminished with rales and significant wheezing all over his chest. Patient has a right-sided rib deformity due to an accident many years ago. Gastrointestinal: Abdomen symmetric, non-distended, soft, non-tender, normal bowel sounds x4 quadrant, normoactive, no hepatosplenomegaly Musculoskeletal: No pedal edema, no cyanosis Neurological: Speech is clear, alert, and oriented x 4. No motor or sensory deficit, deep tendon reflexes normal, cerebellar intact. Cranial nerves II-XII intact. Skin: Patient has multiple seborrheic keratoses throughout his entire face upper chest and his back Result Diagram: 02/09/25 1424 02/09/25 1424 Counseling Services Smoking & Tobacco Cessation: > 10 Minutes (I advised the patient extensively on cessation of smoking. Patient was clearly explained about the impact of smoking like lung cancer coronary artery disease) Assessment Assessment A 79-year-old male with a past medical history of chronic obstructive pulmonary disease (COPD) diagnosed 20 years ago who presented with shortness of breath Plan Plan s Date of Service: Feb 09, 2025 Billing Provider: LIZ ORO, RES Feb 09, 2025 19:19
[2025-02-09] MEDS: PERFLUTREN PROTEIN-A MICROSPHR (Optison) 0.22 MG/ML 3ML VIAL IV ONE (19:20)
[2025-02-09] MEDS: docusate sod 100mg capsule PO SCH (20:00)
[2025-02-09] MEDS: K and/or MAG REPLACEMENT MC SCH (20:00)
[2025-02-09] MEDS ORDERED: docusate sod 100mg capsule PO SCH (20:00)
--- NOTE | 2025-02-09 20:19 | HISTORY AND PHYSICAL-Residence ---
History & Physical Providers to CC Resident Creating Document: GEMAMY, RES ~ History of Present Illness Primary Medical Doctor: DARINEL Reason for Admit\Complaint: Shortness of breaths History of Present Illness A 79-year-old male with a past medical history of chronic obstructive pulmonary disease (COPD) diagnosed 20 years ago who presented with shortness of breath that has been ongoing for two weeks. He states his dyspnea as not-constant, non- positional, and somewhat progressive over the past several days. Aggravates on physical exertion. He denies orthopnea or paroxysmal nocturnal dyspnea. Patient's other past history includes anxiety ,depression, coronary artery disease and hyperlipidemia. In addition to dyspnea, the patient reports lightheadedness that has been ongoing for about one week. The patient had a fall last Sunday and tripped over the stairs bruised his right knee and right elbow. Patient denies any symptoms of loss of consciousness ,confusion nausea, vomiting and head injury post the fall.He also reports a new onset of dry cough that began 2 weeks ago, with no associated sputum production. He denies fevers, chills, night sweats, chest pain, hemoptysis, or recent sick contacts. He is a smoker and continues to smoke about 15 cigarettes per week. Allergies: Coded Allergies: No Known Allergies (Unverified , 02/09/25) Home Medications Home Medications Active Keflex* (Cephalexin HCl) 250 Mg Capsule 2 Cap PO BID 7 Days Habitrol 14 MG Patch* (Nicotine) 1 Each Patch.td24 1 Patch TD DAILY Colace (Docusate Sodium) 100 Mg Capsule 1 Cap PO Q12H 30 Days Reported Trazodone HCl 100 Mg Tablet 1 Tab PO HS PRN 30 Days PROTONIX tablet (Pantoprazole Sodium) 40 Mg Tablet.dr 40 Mg PO BID Loratadine 10 Mg Tablet 1 Tab PO DAILY 30 Days Ferrous Sulfate 325 Mg Tablet 1 Tab PO BID 30 Days Citalopram HBr (Citalopram Hydrobromide) 40 Mg Tablet 20 Mg PO DAILY Vitamin D3 (Cholecalciferol (Vitamin D3)) 50 Mcg Tablet 2 Tab PO DAILY Atorvastatin Calcium 80 Mg Tablet 1 Tab PO DAILY 30 Days Ascorbic Acid 500 Mg Tablet 1 Tab PO DAILY 30 Days Combivent Respimat Inhal [place] (Albuterol/Ipratropium) 4 Gm Aer.w.adap 1 Puffs IH QID PRN Quetiapine Fumarate 100 Mg Tablet 1 Tab PO HS 30 Days Vitamin B-12* (Cyanocobalamin) 500 Mcg Tablet 1 Tab PO DAILY 30 Days Buspirone HCl 10 Mg Tablet 1 Tab PO BID Aspirin EC (Aspirin) 81 Mg Tablet.dr 1 Tab PO DAILY Metoprolol Tartrate 25 Mg Tablet 0.5 Tab PO BID Past Medical History Past Medical History COPD Hyperlipidemia Coronary artery disease Anxiety Depression Underlying dementia Family History Family History: Patient reports no known family medical history. Past Social History Smoking: Cigarettes (15 cigarettes per week) Alcohol Use: Other (Used to drink alcohol occasionally 2 years ago last drink was 2 years ago) Drug Use: None Lives with: Other ([facility] community) Lives In: Assisted Care Occupation: retired ([employer] ) ROS All Other Systems: Reviewed and Negative (Except for pertinent positive) Exam Vitals: Vital Signs Date Time Temp Pulse Resp B/P (MAP) Pulse Ox O2 Delivery O2 Flow Rate FiO2 02/09/25 20:08 73 17 Room Air 02/09/25 19:58 93 0 21 02/09/25 16:09 109/67 (81) 02/09/25 13:51 98.0 General: Awake , alert, and oriented x4, resting comfortably in the bed, mild distress HEENT: Atraumatic, normocephalic, EOMI, anicteric sclera ; pink conjunctiva Neck: Trachea midline. Supple, full range of motion, no JVD Cardiac: Regular rhythm, regular rate with no murmurs all over the precordium. Respiratory: Equal breath sounds bilaterally, diminished with rales and significant wheezing all over his chest. Patient has a right-sided rib deformity due to an accident many years ago. Gastrointestinal: Abdomen symmetric, non-distended, soft, non-tender, normal bowel sounds x4 quadrant, normoactive, no hepatosplenomegaly Musculoskeletal: No pedal edema, no cyanosis,Lumbar spinal muscle strain Neurological: Speech is clear, alert, and oriented x 4. No motor or sensory deficit, deep tendon reflexes normal, cerebellar intact. Cranial nerves II-XII intact. Skin: Patient has multiple seborrheic keratoses throughout his entire face upper chest and his back Diagnostic Data Last Recorded Lab Results: 02/09/25 1424 02/09/25 1424 Counseling Services Smoking & Tobacco Cessation: > 10 Minutes (Counseled the patient extensively on smoking cessation.) Additional Plan Acute on chronic exacerbation of COPD Currently on room air Chest X-ray was normal. No fever, no sputum, no systemic inflammatory signs. Patient has dry cough. Plan:Duonebs (ipratropium/albuterol) q2h PRN, q.4h scheduled Initiated IV methylprednisone 40mg BID Started the patient on ceftriaxone and azithromycin Monitor oxygen saturation Encourage incentive spirometry, physical activity as tolerated 2. Lightheadedness Patient had an episode of lightheadedness 2 weeks back and do tripped and fell on stairs and small wounds on the right knee and right elbow. No signs of true vertigo, orthostasis, or vestibular dysfunction Less likely central neurologic cause without other focal signs Plan:Orthostatic vitals ordered 3. Shortness of breaths,NYHA class 3,mMRC dysnea scale >3 Patient complains of shortness of present last 2 weeks with minimal activity. No complaints of PND or chest pain 4. Coronary artery disease Patient is on home medication aspirin 81 mg. 5. Hyperlipidemia Patient is on atorvastatin 40 mg. 6. Anxiety and depression Patient's home medications of citalopram, buspirone and quetiapine to be continued. 7.Chronic tobacco use Patient is on nicotine patch 14mg. Code Status: Full code DVT Prophylaxis: Heparin SQ PT: Ordered Prognosis: Guarded Disposition: Continue medical management Amy Linda MD Internal Medicine Resident, PGY-1 Date of Service: Feb 09, 2025 Billing Provider: MYRA CERVANTES MD, JAHNAVI, RES Feb 09, 2025 20:19
[2025-02-09] MEDS: pantoprazole 40mg Tablet.DR PO SCH (20:57)
[2025-02-09] MEDS: heparin, porcine 5000 units/ml vial SQ SCH (20:58)
[2025-02-09 23:10] LABS: LEUKOCYTE ESTERASE ,URINE NEGATIVE (Neg); NITRITES, URINE NEGATIVE (Neg); OCCULT BLOOD,URINE NEGATIVE (Neg)
[2025-02-09 23:15] LABS: UA COLLECTION TYPE URINAL
[2025-02-09 23:18] LABS: MUCUS STRANDS MANY /LPF (Neg); SQUAMOUS EPITHELIAL CELL,UR FEW /LPF (FEW)
[2025-02-10] VITALS (16 sets, daily range): BP systolic 114–172; BP diastolic 50–82; PULSE 55–84; RESP 15–24; TEMP 97.3–98.3; O2SAT 93–100
[2025-02-10 05:00] LABS: MEAN PLATELET VOLUME 8.2 FL (7.4-10.4); RED CELL DISTRIBUTION WIDTH 13.2 % (11.5-14.5)
[2025-02-10 05:27] LABS: CHOL/HDL RATIO 2.4 (0.00-4.99); CREATININE 0.84 MG/DL (0.60-1.10); LDL CHOLESTEROL 61 MG/DL (50-100); TOTAL CARBON DIOXIDE 27.2 MMOL/L (24-32); eCRCL 73 ML/MIN; eGFR 88 ML/MIN
[2025-02-10] MEDS: ipratropium/albuterol 3ml nebule NEB SCH (07:26)
[2025-02-10] MEDS: CefTRIAXone/D5W-Rocephin 1gm 50 ML IV SCH (07:39)
[2025-02-10] MEDS: cyanocobalamin 500mcg tablet PO SCH (07:40)
[2025-02-10] MEDS: cholecalciferol (vitamin D3) 1,000 unit (25mcg) tablet PO SCH (07:40)
[2025-02-10] MEDS: aspirin 81mg, enteric-coated 1 TAB TABLET.DR PO SCH (07:41)
[2025-02-10] MEDS: azithromycin/NS 500mg/250ml 250 ML IV SCH (07:42)
[2025-02-10] MEDS: nicotine 14mg patch - 24hr TD SCH (07:43)
--- NOTE | 2025-02-10 13:46 | CARDIOLOGY REPORT ---
APPROVED REPORT EXAM: Comprehensive 2D, Doppler, and color-flow Echocardiogram. 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 291.0 cm/s AoV VTI 56.8 cm AO Peak GR. 34.0 mmHg AO Mean GR. 16 mmHg LVOT VTI 23.07 cm AMAIRANI(VTI)/BSA 1.56 cm2/m2 AMAIRANI (VTI) 1.56 cm2 Mitral Valve MV E Velocity 79.6 cm/s MV Peak Gr. 3 mmHg MV DECEL TIME 200 ms MV A Velocity 81.8 cm/s MV PHT 48 ms E/A Ratio 1.0 MVA (PHT) 4.58 cm2 MV VMax87.2 cm/s Tricuspid Valve TR P. Velocity 345 cm/s RAP ESTIMATE 10 mmHg TR Peak Gr. 48 mmHg RVSP 58 mmHg LEFT VENTRICLE Normal LV size and wall thickness. Overall systolic function is normal. Overall LVEF is 60-65%. RIGHT VENTRICLE RV is mildly dilated in size with normal function. Estimated PA systolic pressure of 58 mm of mercury ATRIA The left atrium size is normal. AORTIC VALVE Trileaflet AV appears mildly sclerotic with mild stenosis. AMAIRANI is measured at 1.35 cmsq. Peak / mean gradients of 34/16 mmHG. Peak velocity is measured at 291 cm/s. No insufficiency. MITRAL VALVE Mild MV annular calcification without stenosis. Trace regurgitation. TRICUSPID VALVE TV appears structurally normal with mild regurgitation. PULMONIC VALVE Pulmonic valve is not well visualized. GREAT VESSELS Normal pericardium. No effusion. PERICARDIUM Normal pericardium. No effusion. Other Information Study Quality: Fair Conclusion Overall LVEF is 60-65%. Normal LV size and wall thickness. Overall systolic function is normal. RV is mildly dilated in size with normal function. Estimated PA systolic pressure of 58 mm of mercur y Trileaflet AV appears mildly sclerotic with mild stenosis. AMAIRANI is measured at 1.35 cmsq. Peak / mean gradients of 34/16 mmHG. Peak velocity is measured at 291 cm/s. No insufficiency. Mild MV annular calcification without stenosis. Trace regurgitation. TV appears structurally normal with mild regurgitation. Normal pericardium. No effusion.
--- NOTE | 2025-02-10 18:29 | PROGRESS NOTE- Residence ---
Progress Note - Resident Providers to CC Resident Creating Document: LIZ RABAGO RES ~ Antibiotic Timeout Antibiotic Ordered?: Yes Subjective Patient was seen and examined near his bedside. Patient appears much more comfortable compared to yesterday. Objective Vital Signs Date Time Temp Pulse Resp B/P (MAP) Pulse Ox O2 Delivery O2 Flow Rate FiO2 02/10/25 14:36 81 20 Room Air 0.0 21 02/10/25 14:27 94 02/10/25 11:00 97.9 135/63 (87) Awake , alert, and oriented x4, resting comfortably in the bed, mild distress HEENT: Atraumatic, normocephalic, EOMI, anicteric sclera ; pink conjunctiva Neck: Trachea midline. Supple, full range of motion, no JVD Cardiac: Regular rhythm, regular rat,Mitral regurgitation heard in the mitral area. Respiratory: Equal breath sounds bilaterally, diminished with rales and significant wheezing all over his chest. Patient has a right-sided rib deformity due to an accident many years ago. Gastrointestinal: Abdomen symmetric, non-distended, soft, non-tender, normal bowel sounds x4 quadrant, normoactive, no hepatosplenomegaly Musculoskeletal: No pedal edema, no cyanosis,Lumbar spinal muscle strain Neurological: Speech is clear, alert, and oriented x 4. No motor or sensory deficit, deep tendon reflexes normal, cerebellar intact. Cranial nerves II-XII intact. Skin: Patient has multiple seborrheic keratoses throughout his entire face upper chest and his back Result Diagram: 02/10/25 0419 02/10/25 0419 Counseling Services Smoking & Tobacco Cessation: > 10 Minutes Assessment Assessment A 79-year-old male with a past medical history of chronic obstructive pulmonary disease (COPD) diagnosed 20 years ago who presented with shortness of breath Plan Plan Acute on chronic exacerbation of COPD Currently on room air Chest X-ray was normal. No fever, no sputum, no systemic inflammatory signs. Patient has dry cough. Plan:Duonebs (ipratropium/albuterol) q2h PRN, q.4h scheduled Initiated IV methylprednisone 40mg BID Patient continues to be on ceftriaxone and azithromycin. Monitor oxygen saturation Encourage incentive spirometry, physical activity as tolerated 2. Lightheadedness resolved 3. Shortness of breaths,NYHA class 3,mMRC dysnea scale >3 Patient complains of shortness of present last 2 weeks with minimal activity. No complaints of PND or chest pain Patient had an echo done today which showed EF of 60-65% 4. Coronary artery disease Patient is on home medication aspirin 81 mg. 5. Hyperlipidemia Patient is on atorvastatin 40 mg. 6. Anxiety and depression Patient's home medications of citalopram, buspirone and quetiapine to be continued. 7.Chronic tobacco use Patient is on nicotine patch 14mg. Code Status: Full code DVT Prophylaxis: Heparin SQ PT: Ordered Prognosis: Guarded Disposition: Possible discharge tomorrow Liz Rabago MD Internal Medicine Resident, PGY-1 Date of Service: Feb 10, 2025 Billing Provider: MYRA CERVANTES MD, JAHNAVI, RES Feb 10, 2025 18:29
[2025-02-10] MEDS ORDERED: methylPREDNISolone sod succ/PF 40mg inj. IV SCH (20:00)
[2025-02-11] VITALS (7 sets, daily range): BP systolic 138–156; BP diastolic 61–79; PULSE 57–69; RESP 18–20; TEMP 97.5–97.8; O2SAT 94–96
[2025-02-11 05:08] LABS: MEAN PLATELET VOLUME 8.3 FL (7.4-10.4); RED CELL DISTRIBUTION WIDTH 13.4 % (11.5-14.5)
[2025-02-11 05:44] LABS: CREATININE 0.80 MG/DL (0.60-1.10); TOTAL CARBON DIOXIDE 26.8 MMOL/L (24-32); eCRCL 77 ML/MIN; eGFR > 90 ML/MIN
[2025-02-11] MEDS: methylPREDNISolone sod succ/PF 40mg inj. IV SCH (08:56)
[2025-02-11] MEDS ORDERED: PRED20TA PO (13:17)
[2025-02-11] MEDS ORDERED: AZIT500T PO (13:17)
[2025-02-11] MEDS ORDERED: ALBU8HFA PO (13:17)
[2025-02-11] MEDS ORDERED: LACT1CAP26 PO (13:17)
[2025-02-11] MEDS ORDERED: CEFD300C3 PO (13:17)
[2025-02-11] MEDS ORDERED: UMEC1DIS INH (13:17)
--- NOTE | 2025-02-11 15:21 | DISCHARGE SUMMARY-Residence ---
Discharge Summary Providers to CC Resident Creating Document: LIZ RABAGO, BROOKS ~ Discharge Summary Assessment A 79-year-old male with a past medical history of chronic obstructive pulmonary disease (COPD) diagnosed who presented with shortness of breath Admission Diagnosis: COPD exacerbration Hospital Course DATE OF ADMISSION: 02/09/2025 DATE OF DISCHARGE: 02/11/2025 Discharge Diagnosis\Comment: Acute on chronic COPD exacerbation Operations\Procedures: None Consultants: None Complications: None Condition on DC: Stable New Medications: albuterol inhaler (Pro-Air Inhaler) 8.5 Gm Inhaler 1-2 PUFFS PO Q4H PRN for shortness of breath, #1 INH Azithromycin (Zithromax) 500 Mg Tablet 1 TAB PO DAILY for 1 Day, #1 TAB Cefdinir (Cefdinir) 300 Mg Capsule 1 CAP PO Q12H for 3 Days, #6 CAP 0 Refills Lactobacillus Rhamnosus (Culturelle) 10 Billion Cell Capsule 1 CAP PO DAILY for 30 Days, #30 CAP 0 Refills Prednisone* (Prednisone*) 20 Mg Tablet 2 TAB PO DAILY for 5 Days, #10 TAB Umeclidinium Brm/Vilanterol Tr (Anoro Ellipta 62.5-25 Mcg INH) 62.5 Mcg-25 Mcg/Actuation Disk.w.dev 1 PUFFS INH DAILY for 30 Days, #2 EA 0 Refills Continued Medications: Ascorbic Acid (Ascorbic Acid) 500 Mg Tablet 1 TAB PO DAILY for 30 Days, #30 TAB 0 Refills Aspirin (Aspirin EC) 81 Mg Tablet.dr 1 TAB PO DAILY Atorvastatin Calcium (Atorvastatin Calcium) 80 Mg Tablet 1 TAB PO DAILY for 30 Days, #30 TAB Buspirone HCl (Buspirone HCl) 10 Mg Tablet 1 TAB PO BID Cholecalciferol (Vitamin D3) (Vitamin D3) 50 Mcg Tablet 2 TAB PO DAILY Citalopram Hydrobromide (Citalopram HBr) 40 Mg Tablet 20 MG PO DAILY Cyanocobalamin* (Vitamin B-12*) 500 Mcg Tablet 1 TAB PO DAILY for 30 Days, #30 TAB Docusate Sodium (Colace) 100 Mg Capsule 1 CAP PO Q12H for 30 Days, #60 CAP 0 Refills Ferrous Sulfate (Ferrous Sulfate) 325 Mg Tablet 1 TAB PO BID for 30 Days, #60 TAB 0 Refills Ipratropium/Albuterol Sulfate (Combivent Respimat Inhal [place]) 4 Gm Aer.w.adap 1 PUFFS IH QID PRN for SOB or wheezing, #1 INH Loratadine (Loratadine) 10 Mg Tablet 1 TAB PO DAILY for 30 Days, #30 TAB Metoprolol Tartrate (Metoprolol Tartrate) 25 Mg Tablet 0.5 TAB PO BID Nicotine 14 MG Patch* (Habitrol 14 MG Patch*) 1 Each Patch.td24 1 PATCH TD DAILY, #30 PATCH Pantoprazole Sodium (PROTONIX tablet) 40 Mg Tablet.dr 40 MG PO BID, TAB.SR Quetiapine Fumarate (Quetiapine Fumarate) 100 Mg Tablet 1 TAB PO HS for 30 Days, #30 TAB Trazodone HCl (Trazodone HCl) 100 Mg Tablet 1 TAB PO HS PRN for sedation for 30 Days, #30 TAB Discontinued Medications: Cephalexin*Monohydrate* (Keflex*) 250 Mg Capsule 2 CAP PO BID for 7 Days, #28 CAP Discharge Summary: [place] according to admitting physician:A 79-year-old male with a past medical history of chronic obstructive pulmonary disease (COPD) diagnosed 20 years ago who presented with shortness of breath that has been ongoing for two weeks. He states his dyspnea as not-constant, non-positional, and somewhat progressive over the past several days. Aggravates on physical exertion. He denies orthopnea or paroxysmal nocturnal dyspnea. Patient's other past history includes anxiety ,depression, coronary artery disease and hyperlipidemia. In addition to dyspnea, the patient reports lightheadedness that has been ongoing for about one week. The patient had a fall last Sunday and tripped over the stairs bruised his right knee and right elbow. Patient denies any symptoms of loss of consciousness ,confusion nausea, vomiting and head injury post the fall.He also reports a new onset of dry cough that began 2 weeks ago, with no associated sputum production. He denies fevers, chills, night sweats, chest pain, hemoptysis, or recent sick contacts. He is a smoker and continues to smoke about 15 cigarettes per week. Hospital course: A 79-year-old male with a past medical history of COPD presented with shortness of breath that has been ongoing for two weeks. He states his dyspnea as not-constant, non-positional, and somewhat progressive over the past several days. Aggravates on physical exertion. He denies orthopnea or paroxysmal nocturnal dyspnea. Patient's chest x-ray was normal. Patient's white blood count was normal his vitals were stable Patient heard no symptoms of fevers food or any systemic inflammatory signs. Patient was i nitiated with DuoNebs IV methylprednisolone and patient was on ceftriaxone azithromycin. We continued to monitor his oxygen saturation and incentive spirometry was encouraged. Patient also has a lightheadedness for the last two weeks but due to signs of v ertigo orthostasis or vertebral dysfunction. Orthostatic vitals were ordered and patient did not have any positive findings. Patient with a patient also higher dose shortness of breath for the last two weeks which show got better with the DuoNebs treatment and steroid treatment. Echo was done which was normal with LVEF of 60-65%. Patient continued to be on his home medication has been 81 mg for his coronary artery disease. Patient continued to be to on atorvastatin 40 mg for his hyperlipidemia. Patient is a chronic smoker and continues to smoke alcohol so nicotine patch of 14 mg was placed. Patient takes citalopram ,buspirone and quetiapine for his previous diagnosis of anxiety and depression. Vital Signs Date Time Temp Pulse Resp B/P (MAP) Pulse Ox O2 Delivery O2 Flow Rate FiO2 02/11/25 15:20 Room Air* 0 21 02/11/25 11:56 64 20 02/11/25 11:48 94 02/11/25 10:00 97.5 138/69 (92) Laboratory Tests Test 02/09/25 16:24 02/09/25 17:40 02/09/25 22:20 02/10/25 04:19 Troponin I High Sensitivity 18 ng/L 24 ng/L Troponin I High Sens Percent Delta 157 % 33 % Troponin I Hi Sens Absolute Change 11 ng/L 6 ng/L Urine Specimen Description Urinal Urine Color Yellow Urine Clarity Clear Urine pH 6.0 Urine Specific [place] >=1.030 Urine Protein Trace mg/dl Urine Glucose (UA) 250 mg/dl Urine Ketones Negative mg/dl Urine Occult Blood Negative Urine Nitrite Negative Urine Bilirubin Negative Urine Urobilinogen 1.0 E.U/dL Urine Leukocyte Esterase Negative Urine RBC 0-2 /HPF Urine WBC 0-4 /HPF Urine Squamous Epithelial Cells Few /LPF Urine Bacteria None seen /HPF Urine Mucus Many /LPF Urine Culture Indicated Not ind Volume Urine Centrifuged 10 ml Urine Comment White Blood Count 4.7 X10'3 Red Blood Count 4.88 X10'6 Hemoglobin 14.2 g/dl Hematocrit 42.1 % Mean Corpuscular Volume 86.3 FL Mean Corpuscular Hemoglobin 29.2 PG Mean Corpuscular Hemoglobin Concent 33.8 g/dL Red Cell Distribution Width 13.2 % Platelet Count 185 X10'3 Mean Platelet Volume 8.2 FL Neutrophils (%) (Auto) 88.4 % Lymphocytes (%) (Auto) 9.7 % Monocytes (%) (Auto) 1.7 % Eosinophils (%) (Auto) 0.1 % Basophils (%) (Auto) 0.1 % Neutrophils # (Auto) 4.2 X10'3 Lymphocytes # (Auto) 0.5 X10'3 Monocytes # (Auto) 0.1 X10'3 Eosinophils # (Auto) 0.0 X10'3 Basophils # (Auto) 0.0 X10'3 CBC Comment Sodium Level 140 MMOL/L Potassium Level 4.9 MMOL/L Chloride Level 106 MMOL/L Carbon Dioxide Level 27.2 MMOL/L Anion Gap 7 Blood Urea Nitrogen 17 MG/DL Creatinine 0.84 MG/DL Estimated GFR/1.73 m2 88 ML/MIN BUN/Creatinine Ratio 20.2 Glucose Level 142 MG/DL Calcium Level 8.7 MG/DL Magnesium Level 2.0 MG/DL Total Bilirubin 0.5 MG/DL Aspartate Amino Transf (AST/SGOT) 13 U/L Alanine Aminotransferase (ALT/SGPT) 26 U/L Alkaline Phosphatase 114 IU/L Total Protein 6.5 G/DL Albumin 3.3 G/DL Globulin 3.2 G/DL Albumin/Globulin Ratio 1.0 Triglycerides Level 20 MG/DL Cholesterol Level 126 MG/DL LDL Cholesterol 61 MG/DL HDL Cholesterol 53 MG/DL Cholesterol/HDL Ratio 2.4 Chemistry Comments Test 02/11/25 02:11 02/11/25 04:41 Glucometer 134 mg/dl White Blood Count 11.0 X10'3 Red Blood Count 4.92 X10'6 Hemoglobin 14.2 g/dl Hematocrit 42.5 % Mean Corpuscular Volume 86.5 FL Mean Corpuscular Hemoglobin 28.9 PG Mean Corpuscular Hemoglobin Concent 33.4 g/dL Red Cell Distribution Width 13.4 % Platelet Count 211 X10'3 Mean Platelet Volume 8.3 FL Neutrophils (%) (Auto) 89.4 % Lymphocytes (%) (Auto) 6.7 % Monocytes (%) (Auto) 3.6 % Eosinophils (%) (Auto) 0.1 % Basophils (%) (Auto) 0.2 % Neutrophils # (Auto) 9.8 X10'3 Lymphocytes # (Auto) 0.7 X10'3 Monocytes # (Auto) 0.4 X10'3 Eosinophils # (Auto) 0.0 X10'3 Basophils # (Auto) 0.0 X10'3 CBC Comment Sodium Level 140 MMOL/L Potassium Level 4.5 MMOL/L Chloride Level 105 MMOL/L Carbon Dioxide Level 26.8 MMOL/L Anion Gap 8 Blood Urea Nitrogen 20 MG/DL Creatinine 0.80 MG/DL Estimated GFR/1.73 m2 > 90 ML/MIN BUN/Creatinine Ratio 25.0 Glucose Level 121 MG/DL Calcium Level 8.9 MG/DL Magnesium Level 2.1 MG/DL Total Bilirubin 0.4 MG/DL Aspartate Amino Transf (AST/SGOT) 19 U/L Alanine Aminotransferase (ALT/SGPT) 27 U/L Alkaline Phosphatase 109 IU/L Total Protein 6.6 G/DL Albumin 3.4 G/DL Globulin 3.2 G/DL Albumin/Globulin Ratio 1.1 Chemistry Comments Discharge medication: New Medications: albuterol inhaler (Pro-Air Inhaler) 8.5 Gm Inhaler Azithromycin (Zithromax) 500 Mg Tablet Cefdinir 300 Mg Capsule Lactobacillus Rhamnosus (Culturelle) 10 Billion Cell Capsule Prednisone* 20 Mg Tablet Umeclidinium Brm/Vilanterol Tr (Anoro Ellipta 62.5-25 Mcg INH) 62.5 Mcg-25 Mcg/Actuation Disk.w.dev Advised to continue previous home medications. Advise at the time of discharge: Please follow up with your PCP within a week of the discharge we precribed you short course of steroids and inhalers Strongly recommended to quit smoking Return to the ER in case of any recurrence of symptoms *Problems/Diagnosis: (1) Lightheadedness Status: Acute (2) COPD (chronic obstructive pulmonary disease) Status: Acute Total Time Spent on D/C: > 30 Minutes Counseling Services Smoking & Tobacco Cessation: > 10 Minutes Date of Service: Feb 11, 2025 Billing Provider: MYRA CERVANTES MD, JAHNAVI, RES Feb 11, 2025 15:21
== END 2025-02-11 15:14 | disposition home or self-care (01) | DRG 192 ==
LOC: ER 13:41 → ED HOLD 16:41 → SUR 3N 18:55
PROVIDERS: ADMIT Family Medicine; ATTEND Family Medicine
DX: J44.1 Chronic obstructive pulmonary disease with (acute) exacerbation (principal); I10 Essential (primary) hypertension; Z87.891 Personal history of nicotine dependence; F03.90 Unspecified dementia, unspecified severity, without behavioral disturbance, psychotic disturbance, mood disturbance, and anxiety; F32.A Depression, unspecified; E78.00 Pure hypercholesterolemia, unspecified; K21.9 Gastro-esophageal reflux disease without esophagitis; E78.5 Hyperlipidemia, unspecified; I25.10 Atherosclerotic heart disease of native coronary artery without angina pectoris; F41.9 Anxiety disorder, unspecified
CPT/HCPCS: 36415; 71045; 80048; 80053; 80061; 81001; 82948; 83036; 83605; 83735; 83880; 84484; 85025; 87040; 87081; 93005; 93306; 94640; 94664; 94668; 94760; 96365; 96375; 99285; A6258; G0378; J0456; J0696; J1644; J2919

== ENCOUNTER 2025-03-01 14:50 | Emergency (ER) | payer OTHER, MEDICARE ==
[~2025-03-01] VITALS: Ht 182.9 cm; Wt 81.0 kg
[~2025-03-01 14:50] MED LIST changes: +ALBU8HFA PO; +CEFD300C3 PO; -CEPH250T PO; +LACT1CAP26 PO; +UMEC1DIS INH
[2025-03-01 14:52] VITALS: TEMP 98.3
--- NOTE | 2025-03-01 14:58 | ELECTROCARDIOGRAPH REPORT ---
[facility] Test Date: 2025-03-01 Test Time: 14:55:51 Pat Name: ANIRUDH TOUSSAINT Department: EMERGENCY ROOM [id number] Room: Gender: M [employer] Telephone Clerk: MALIK : 1945 Requested By: DORINDA HUNTER Order Number: [id number] Reading MD: Dr. Bobby Tom Measurements Intervals [place] Rate: 63 P: 31 UT: 147 QRS: -5 QRSD: 117 T: 29 QT: 400 QTc: 410 Interpretive Statements Sinus rhythm Nonspecific intraventricular conduction delay Borderline ST elevation, anterior leads Electronically Signed On 03-01-2025 22:27:[address] Bobby Tom Please click the below link to view image of tracing.
--- NOTE | 2025-03-01 15:14 | RADIOLOGY REPORT ---
CHEST RADIOGRAPH Indication: CP Technique: Single frontal view of the chest was obtained COMPARISON: DI CHEST,SINGLE VIEW on DOS: 02/09/25, DI CHEST,SINGLE VIEW on DOS: 04/12/24, DI CHEST,SINGLE VIEW on DOS: 11/15/23, CHEST,SINGLE VIEW on DOS: 02/18/23, CHEST,SINGLE VIEW on DOS: 12/07/22 FINDINGS: Lines and Tubes: None Lungs: Clear Pleura: No effusion. No pneumothorax. Cardiomediastinal contours: Unremarkable Bones: Unremarkable IMPRESSION: 1. No acute disease.
--- NOTE | 2025-03-01 15:21 | Physician Documentation ---
History of Present Illness ~ Chief Complaint: Shortness of Breath Stated Complaint: SOB Time Seen by MD: 15:20 Primary Medical Doctor: DARINEL Mode of Arrival: EMS HPI This is an 80-year-old male with a history of COPD who presents to the ER today due shortness of breath. He reports that this has been present for several days. Of note, the patient was last admitted to this hospital just 20 days ago for a COPD exacerbation. During that hospitalization he was found to have an echocardiogram with a normal ejection fraction 60-65%. He does also has a history of hyperlipidemia, nicotine dependence, anxiety and depression. Medication Reconciliation Allergies: Coded Allergies: No Known Allergies (Unverified , 02/09/25) Scheduled Ascorbic Acid (Ascorbic Acid), 1 TAB PO DAILY, (Reported) Aspirin (Aspirin EC), 1 TAB PO DAILY, (Reported) Atorvastatin Calcium (Atorvastatin Calcium), 1 TAB PO DAILY, (Reported) Buspirone HCl (Buspirone HCl), 1 TAB PO BID, (Reported) Cefdinir (Cefdinir), 1 CAP PO Q12H Cholecalciferol (Vitamin D3) (Vitamin D3), 2 TAB PO DAILY, (Reported) Citalopram Hydrobromide (Citalopram HBr), 20 MG PO DAILY, (Reported) Cyanocobalamin* (Vitamin B-12*), 1 TAB PO DAILY, (Reported) Docusate Sodium (Colace), 1 CAP PO Q12H Ferrous Sulfate (Ferrous Sulfate), 1 TAB PO BID, (Reported) Lactobacillus Rhamnosus (Culturelle), 1 CAP PO DAILY Loratadine (Loratadine), 1 TAB PO DAILY, (Reported) Metoprolol Tartrate (Metoprolol Tartrate), 0.5 TAB PO BID, (Reported) Nicotine 14 MG Patch* (Habitrol 14 MG Patch*), 1 PATCH TD DAILY Pantoprazole Sodium (PROTONIX tablet), 40 MG PO BID, (Reported) Quetiapine Fumarate (Quetiapine Fumarate), 1 TAB PO HS, (Reported) Umeclidinium Brm/Vilanterol Tr (Anoro Ellipta 62.5-25 Mcg INH), 1 PUFFS INH DAILY Scheduled PRN Ipratropium/Albuterol Sulfate (Combivent Respimat Inhal [place]), 1 PUFFS IH QID PRN for SOB or wheezing, (Reported) Trazodone HCl (Trazodone HCl), 1 TAB PO HS PRN for sedation, (Reported) albuterol inhaler (Pro-Air Inhaler), 1-2 PUFFS PO Q4H PRN for shortness of breath Past Medical History Past Medical History: Dementia, Epistaxis, High Cholesterol, Hypertension, COPD, GERD, Anemia, *PSYCH*, Depression Past Surgical History: orthopedic surgeries Patient History: Patient reports no known family medical history. Alcohol Use: Other Drug Use: none Lives with: Other Lives In: Assisted Care Occupation: retired Review of Systems ROS As stated above in the HPI, otherwise all systems are reviewed and negative. Physical Exam Vital Signs: Temperature: 98.3, Source: Oral, Heart Rate: 63, Respiratory Rate: 16, BP: 123/69, Pulse Oximetry: 96, Weight: 81.000 Oxygen Flow Rate: 0 Physical Exam General: Alert, no apparent distress. Neck: Full range of motion. Respiratory: Moderate wheezing/rhonchi. Mild tachypnea. Chest: No accessory muscle use. Cardiovascular: Regular rate and rhythm, no murmurs. Gastrointestinal: Soft, nontender, nondistended. Bowels sounds present. Extremities: Normal range of motion, no deformity. Neurologic: Oriented x4. Psychiatric: Normal mood and affect. Skin: Normal color, warm and dry. No edema, no ecchymosis. Progress Results/Orders Results/Orders Orders - LIO STUBBS NP Svn Treatment (03/01/25 15:45) Completed Orders - LIO STUBBS NP Ipratropium/Albuterol Nebule (Ipratrop/A (03/01/25 15:45) Methylprednisolone Sod Succ (Solumedrol (03/01/25 15:45) Medications Received in ER Medications (Trade) Dose Ordered Sig/Cory Route PRN Reason Start Time Stop Time Status Last Admin Dose Admin (ipratrop/ albuterol 0.5-3(2.5) MG/3ml nebule) 3 ml ONCE ONCE NEB 03/01/25 15:45 03/01/25 15:47 DC 03/01/25 16:41 3 ML (SoluMEDROL 125mg inj) 125 mg ONCE ONCE IV 03/01/25 15:45 03/01/25 15:47 DC 03/01/25 16:35 125 MG Vital Signs 03/01/25 03/01/25 03/01/25 03/01/25 14:52 15:02 16:44 16:50 Temp 98.3 Pulse 63 57 57 Resp 18 16 20 18 B/P (MAP) 123/69 Pulse Ox 96 97 100 O2 Delivery Room Air* Room Air* O2 Flow Rate 0 0 0 FiO2 21 21 Laboratory Tests Test 03/01/25 15:16 03/01/25 15:22 03/01/25 16:45 White Blood Count 5.9 Red Blood Count 4.84 Hemoglobin 14.0 Hematocrit 42.1 Mean Corpuscular Volume 87.0 Mean Corpuscular Hemoglobin 28.8 Mean Corpuscular Hemoglobin Concent 33.1 Red Cell Distribution Width 13.8 Platelet Count 232 Mean Platelet Volume 7.9 Neutrophils (%) (Auto) 60.0 Lymphocytes (%) (Auto) 27.1 Monocytes (%) (Auto) 9.3 Eosinophils (%) (Auto) 2.3 Basophils (%) (Auto) 1.3 H Neutrophils # (Auto) 3.5 Lymphocytes # (Auto) 1.6 Monocytes # (Auto) 0.5 Eosinophils # (Auto) 0.1 Basophils # (Auto) 0.1 CBC Comment Troponin I High Sensitivity 5 Sodium Level 139 Potassium Level 4.0 Chloride Level 105 Carbon Dioxide Level 25.9 Anion Gap 8 Blood Urea Nitrogen 19 H Creatinine 0.82 Estimated GFR/1.73 m2 90 BUN/Creatinine Ratio 23.2 H Glucose Level 98 Calcium Level 8.3 L Pro-B-Type Natriuretic Peptide 37 Albumin 3.0 L Chemistry Comments EKG/XRAY/CT/US/VASC/MRI EKG : Additional Comment 1455 EKG interpreted to show RSR rate of [address]. [address] segment elevation. QTC 410 ms. Chest X-Ray : Additional Comments [facility] [address] [facility] [place] - [address] DIAGNOSTIC RADIOLOGY Patient: NORBERTANIRUDH C Medical Record: [id number] [facility] : 1945, Age: 80 Sex: Male Location: ER Patient Status: [facility] ER Service Date/Time: 03/01/25/ 1504 Ordering Physician: DORINDA HUNTER MD Exam: CHEST,SINGLE VIEW CHEST RADIOGRAPH Indication: CP Technique: Single frontal view of the chest was obtained COMPARISON: DI CHEST,SINGLE VIEW on DOS: 02/09/25, DI CHEST,SINGLE VIEW on DOS: 04/12/24, DI CHEST,SINGLE VIEW on DOS: 11/15/23, CHEST,SINGLE VIEW on DOS: 02/18/23, CHEST,SINGLE VIEW on DOS: 12/07/22 FINDINGS: Lines and Tubes: None Lungs: Clear Pleura: No effusion. No pneumothorax. Cardiomediastinal contours: Unremarkable Bones: Unremarkable IMPRESSION: 1. No acute disease. Electronically Signed by:JOSE BALDERAS MD Date & Time: 03/01/251511 Dictated by: JOSE BALDERAS MD Dictation date and time: 03/01/251511 Primary Care Provider: NO PRIMARY CARE PROVIDER cc: DORINDA HUNTER MD ~ Medical Decision Making Differential Dx:Considerations: Include: anxiety, asthma, bronchitis, cardiogenic shock, CHF, COPD, dysrhythmia, hypertension, accelerated, hypertension, essential, hypertension, malignant, hyperventilation, hyponatremia, myocardial infarction, panic attack, pneumonia, pneumonitis, pneumothorax, PSVT, pulmonary embolism, respiratory distress, respiratory failure, sinusitis, upper resp. infection Additional Infomation NEG troponin x 2. Normal CXR. EKG with no ST segment elevation or any other findings concerning for STEMI. Was given solu-medrol 125 mg IVP x 1 in ER and one duoneb. Is to f/u with PCP, return if worse. Departure Time of Disposition: 16:54 Disposition: 01 HOME / SELF CARE / HOMELESS Impression: Primary Impression: Acute exacerbation of chronic obstructive airways disease Condition: Stable Discharge Instructions: Chronic Bronchitis, Adult Additional Instructions: Keep taking your daily scheduled controller inhaler (Anoro). Take prednisone as prescribed for five days. See your primary care to discuss your COPD management. You may benefit from a third medication to manage COPD. Breztri and Trelegy are examples of daily controller inhalers that provide three medications in one. Use your Albuterol inhaler every 4 hours as needed for wheezing/shortness of breath. No Pneumonia on your chest xray today. Labs looked good. No evidence of heart attack based on your labs and EKG. See your primary care for recheck within a week. RETURN IF WORSE. Referrals: NO PRIMARY CARE PROVIDER (PCP) Prescriptions Prednisone* (Prednisone*) 20 Mg Tablet 2 TAB PO DAILY, #10 TAB Prov: LIO STUBBS NP 03/01/25 albuterol inhaler (Pro-Air Inhaler) 8.5 Gm Inhaler 1-2 PUFFS PO Q4H PRN for shortness of breath, #1 INH Prov: LIO STUBBS NP 03/01/25 Education Educated: Patient Educated regarding: diagnosis, treatment, prognosis, need for follow up Signature Scribe Signature: x Attestation: The note accurately reflects work and decisions made by me.Lio Carl NP 03/01/25 16:00 LIO STUBBS NP Mar 01, 2025 15:21
[2025-03-01 15:34] LABS: MEAN PLATELET VOLUME 7.9 FL (7.4-10.4); RED CELL DISTRIBUTION WIDTH 13.8 % (11.5-14.5)
[2025-03-01 16:03] LABS: CREATININE 0.82 MG/DL (0.60-1.10); PRO BRAIN NATRIURETIC PEPTIDE 37 PG/ML (0-450); TOTAL CARBON DIOXIDE 25.9 MMOL/L (24-32); eCRCL 76 ML/MIN; eGFR 90 ML/MIN
[2025-03-01] MEDS: ipratropium/albuterol 3ml nebule NEB ONE (16:41)
[2025-03-01 16:44] VITALS: PULSE 57; RESP 20; O2SAT 97
[2025-03-01 16:50] VITALS: PULSE 57; RESP 18; O2SAT 100
[2025-03-01] MEDS ORDERED: PRED20TA PO (16:57)
[2025-03-01] MEDS ORDERED: ALBU8HFA PO (16:57)
[2025-03-01 17:40] VITALS: BP 144/65; PULSE 63; RESP 18; O2SAT 96
== END 2025-03-01 17:45 | disposition home or self-care (01) ==
LOC: ER 14:51
DX: J44.1 Chronic obstructive pulmonary disease with (acute) exacerbation (principal); I10 Essential (primary) hypertension; E78.00 Pure hypercholesterolemia, unspecified; F03.90 Unspecified dementia, unspecified severity, without behavioral disturbance, psychotic disturbance, mood disturbance, and anxiety; Z87.891 Personal history of nicotine dependence
CPT/HCPCS: 36415; 71045; 80048; 83880; 84484; 85025; 93005; 94640; 96374; 99285; J2919; 94760